=== PATIENT | male | born 1970 ===

== ENCOUNTER 2017-01-16 06:56 | Day surgery (SDC) | payer MEDICARE, MEDICAID ==
[2017-01-13 09:58] VITALS: BMI 35.6
[2017-01-16] MEDS ORDERED: Propofol 10 mg/ml Inj (20 ML) ONE ×2 (08:00→08:29)
[2017-01-16] MEDS ORDERED: Lidocaine 2% Inj (20ml) ONE (08:14)
[2017-01-16] MEDS ORDERED: Sodium Chloride 0.9% 1,000 ML IV SCH (09:00)
[2017-01-16 09:54] VITALS: O2SAT 99
[2017-01-16 09:55] VITALS: PULSE 65
[2017-01-16 10:21] VITALS: BP 124/71; RESP 18; TEMP 98
== END 2017-01-16 10:40 | disposition home or self-care (01) ==
LOC: ENDO 06:56
PROVIDERS: ATTEND Internal Medicine Gastroenterology
DX: D12.2 Benign neoplasm of ascending colon (principal); D12.3 Benign neoplasm of transverse colon; K64.1 Second degree hemorrhoids; K21.0 Gastro-esophageal reflux disease with esophagitis; K29.50 Unspecified chronic gastritis without bleeding; B96.81 Helicobacter pylori [H. pylori] as the cause of diseases classified elsewhere; I10 Essential (primary) hypertension; E78.5 Hyperlipidemia, unspecified
CPT/HCPCS: 43239; 45385; 88305; 88312; 88342; J2704; J7040 ×2

== ENCOUNTER 2017-01-19 21:36 | Emergency (ER) | payer MEDICARE, MEDICAID ==
[2017-01-19 21:36] VITALS: BMI 35.6
[2017-01-19 21:53] VITALS: BP 139/93; PULSE 86; RESP 17; TEMP 98.3; O2SAT 97
--- NOTE | 2017-01-19 22:18 | ED PDOC ---
Arrival/HPI - General Chief Complaint: Headache Time Seen by Provider: 01/19/17 21:42 Historian: Patient - History of Present Illness Narrative History of Present Illness (Text): 01/19/17 22:10 Omid Lucero is a 46 year old male, with a history of seizures, presents to the emergency department for evaluation of possible seizure last night while asleep. Patient reports of a persistent headache throughout the day and states he usually has headaches of similar quality after seizure episodes. Denies any head trauma or tongue biting during the seizure episode last night. Patient mother states that he had a seizure episode 2-3 weeks ago when he hit his head on the ground, but was not evaluated at that time. Patient is compliant with medications. Denies any fever, chills, dizziness, chest pain, shortness of breath, nausea, vomiting, diarrhea, urinary symptoms, or any other complaints at this time. 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 vagus nerve stimulator - Anesthesia Hx Anesthesia Reactions: No Hx Malignant Hyperthermia: No - Suicidal Assessment Feels Threatened In Home Enviroment: No Family/Social History - Physician Review Nursing Documentation Reviewed: Yes Family/Social History: No Known Family HX Smoking Status: Former Smoker Hx Alcohol Use: No Hx Substance Use: No Hx Substance Use Treatment: No Allergies/Home Meds Allergies/Adverse Reactions: Allergies kiwi Allergy (Verified 01/13/17 09:57) RASH Home Medications: Home Meds Medication Instructions Recorded Confirmed Enalapril Maleate [Vasotec] 10 mg PO DAILY 01/19/17 01/19/17 Primidone [Mysoline] 375 mg PO BID 01/19/17 01/19/17 carBAMazepine [TEGretol-XR] 400 mg PO BID 01/19/17 01/19/17 Review of Systems - Physician Review All systems were reviewed & negative as marked: Yes - Review of Systems Constitutional: Normal. absent: Fatigue, Fevers Respiratory: absent: SOB, Cough, Sputum Cardiovascular: absent: Chest Pain Gastrointestinal: absent: Abdominal Pain, Diarrhea, Nausea, Vomiting Neurological: Headache, Focal Weakness, Seizure. absent: Dizziness Psychiatric: Normal Physical Exam Vital Signs Reviewed: Yes Vital Signs Temp Pulse Resp BP Pulse Ox 01/19/17 21:52 98.3 F 86 17 139/93 H 97 Temperature: Afebrile Blood Pressure: Normal Pulse: Regular Respiratory Rate: Normal Appearance: Positive for: Well-Appearing, Non-Toxic, Comfortable Pain Distress: None Mental Status: Positive for: Alert and Oriented X 3 - Systems Exam Head: Present: Atraumatic, Normocephalic Pupils: Present: PERRL Extroacular Muscles: Present: EOMI Neck: Present: Normal Range of Motion Respiratory/Chest: Present: Clear to Auscultation, Good Air Exchange. No: Respiratory Distress, Accessory Muscle Use Cardiovascular: Present: Regular Rate and Rhythm, Normal S1, S2. No: Murmurs Abdomen: Present: Normal Bowel Sounds. No: Tenderness, Distention, Peritoneal Signs Upper Extremity: Present: Normal Inspection. No: Cyanosis, Edema Lower Extremity: Present: Normal Inspection. No: Edema Neurological: Present: GCS=15, CN II-XII Intact, Speech Normal, Motor Func Grossly Intact, Normal Sensory Function Psychiatric: Present: Alert, Oriented x 3, Normal Insight, Normal Concentration Medical Decision Making ED Course and Treatment: 01/19/17 22:24 Impression: A 46 year old male who presents to the emergency department for evaluation of possible seizure last night. Patient has been complaining of headache throughout the day. Plan: -- CT Head -- EKG -- Labs -- Alcohol level -- Carbamazepine -- Drug Screen -- Urinalysis -- Reassess and disposition Progress Notes: 01/20/17 01:30 EKG reviewed by me: NSR @ 87 bpm. Left anterior fascicular block. CT head results reviewed: FINDINGS: Brain: Ventricles are normal in size. There is no midline shift. There is mild prominence of sulci and gyri, unchanged. There is remote right temporal craniotomy. There is right temporal encephalomalacia, unchanged. There are no intra-axial or extra-axial mass lesions or areas of hemorrhage. Adamson-white differentiation is maintained. Ventricles: See above Bones: There is remote right temporal craniotomy defect Soft tissues: unremarkable Sinuses: There is sphenoid and ethmoid sinusitis Ears and mastoids: Middle ears and mastoids are unremarkable Orbits: Orbital contents are unremarkable. 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 I have discussed the results and plan with the patient, who expresses understanding. Patient in agreement with plan to be discharged home. Patient is stable for discharge. Patient was instructed to follow up with physician or return if symptoms worsen or new concerning symptoms arise. 01/21/17 22:46 Re-evaluation Time: 01:08 Reassessment Condition: Re-examined, Improved - Lab Interpretations Lab Results: 01/19/17 22:10 01/19/17 22:10 Lab Results 01/19/17 22:10: Alcohol, Quantitative < 10 01/19/17 22:10: Carbamazepine 12 H* 01/19/17 22:10: Urine Opiates Screen Negative, Urine Methadone Screen Negative, Ur Barbiturates Screen Positive H, Ur Phencyclidine Scrn Negative, Ur Amphetamines Screen Negative, U Benzodiazepines Scrn Negative, U Oth Cocaine Metabols Negative, U Cannabinoids Screen Negative 01/19/17 22:10: Sodium 137, Potassium 3.4 L, Chloride 101, Carbon Dioxide 26, Anion Gap 13, BUN 10, Creatinine 0.8, Est GFR ( Amer) > 60, Est GFR (Non- Af Amer) > 60, Random Glucose 97, Calcium 8.7, Total Bilirubin 0.3, AST 20, ALT 26, Alkaline Phosphatase 74, Total Protein 7.0, Albumin 4.2, Globulin 2.8, Albumin/Globulin Ratio 1.5 01/19/17 22:10: Urine Color Light yellow, Urine Appearance Clear, Urine pH 6.5, Ur Specific [place] 1.010, Urine Protein Negative, Urine Glucose (UA) Negative, Urine Ketones Negative, Urine Blood Trace-intact H, Urine Nitrate Negative, Urine Bilirubin Negative, Urine Urobilinogen 0.2, Ur Leukocyte Esterase Negative , Urine RBC 0 - 2, Urine WBC Negative, Ur Epithelial Cells 0 - 2, Urine Bacteria Small 01/19/17 22:10: WBC 8.6 D, RBC 4.77, Hgb 15.0, Hct 41.5 L, MCV 87.0, MCH 31.4, MCHC 36.1, RDW 13.1, Plt Count 168, MPV 10.2, Gran % 61.5, Lymph % (Auto) 23.3, [place] % (Auto) 11.9 H, Eos % (Auto) 3.1, Baso % (Auto) 0.2, Gran # 5.31, Lymph # 2.0, [place] # 1.0 H, Eos # 0.3, Baso # 0.02 I have reviewed the lab results: Yes - RAD Interpretation Radiology Orders: 01/19/17 22:03 HEAD W/O CONTRAST [CT] Stat Precision Devices Inspector/Tester: Radiologist - EKG Interpretation Interpreted by ED Physician: Yes Type: 12 lead EKG - Medication Orders Current Medication Orders: Discontinued Medications Home Med (*Refrigerator Open) Confirm Administered Dose 1 unit XX .STK-MED ONE Stop: 01/20/17 07:20 Ketorolac Tromethamine (Toradol) 30 mg IVP ONCE ONE Stop: 01/20/17 00:34 Last Admin: 01/20/17 00:38 Dose: 30 mg Ketorolac Tromethamine (Toradol) Confirm Administered Dose 30 mg .ROUTE .STK- MED ONE Stop: 01/20/17 00:37 Last Admin: 01/20/17 00:38 Dose: - Scribe Statement The provider has reviewed the documentation as recorded by the Issac Mccoy Provider Attestation: Provider Scribe Attestation: All medical record entries made by the Lisaibe were at my direction and personally dictated by me. I have reviewed the chart and agree that the record accurately reflects my personal performance of the history, physical exam, medical decision making, and the department course for this patient. I have also personally directed, reviewed, and agree with the discharge instructions and disposition. Disposition/Present on Arrival - Present on Arrival Any Indicators Present on Arrival: No History of DVT/PE: No History of Uncontrolled Diabetes: No Urinary Catheter: No History of Decub. Ulcer: No History Surgical Site Infection Following: None - Disposition Have Diagnosis and Disposition been Completed?: Yes Diagnosis: Seizure, Headache Disposition: HOME/ ROUTINE Disposition Time: 01:08 Condition: GOOD Discharge Instructions (ExitCare): Recurrent Seizures in Adults (ED) Additional Instructions: hold one dose of medication and follow up with pmd Referrals: Dianna Guerrero MD [Primary Care Provider] - Follow up with primary
[2017-01-19 22:22] LABS: ADD MANUAL DIFF? NO
[2017-01-19 22:26] LABS: BASO # 0.02 K/mm3 (0.0-2.0); BASO % 0.2 % (0.0-3.0); EOS # 0.3 (0.0-0.7); EOS % 3.1 % (1.5-5.0); GRAN # 5.31 (1.4-6.5); GRAN % 61.5 % (50.0-68.0); HEMATOCRIT 41.5 % (42.0-52.0); LYMPH % 23.3 % (22.0-35.0); MEAN CORPUSCULAR HEMOGLOBIN 31.4 pg (25.0-35.0); MEAN CORPUSCULAR HGB CONC 36.1 g/dl (31.0-37.0); MEAN PLATELET VOLUME 10.2 fl (7.0-11.0); MONO % 11.9 % (1.0-6.0); PLATELET COUNT 168 10^3/uL (120.0-450.0); RED CELL DISTRIBUTION WIDTH 13.1 % (11.5-14.5); WHITE BLOOD COUNT 8.6 10^3/ul (4.5-11.0)
[2017-01-19 22:35] LABS: PH,URINE 6.5 (4.7-8.0); URINE BILIRUBIN NEGATIVE (NEGATIVE); URINE BLOOD TRACE-INTACT (NEGATIVE); URINE GLUCOSE (UA) NEGATIVE (NEGATIVE); URINE KETONE NEGATIVE (NEGATIVE); URINE LEUKOCYTE ESTERASE NEGATIVE Leu/uL (NEGATIVE); URINE PROTEIN NEGATIVE mg/dL (<30 mg/dL); URINE UROBILINOGEN 0.2 E.U./dL (<1 E.U./dL)
[2017-01-19 22:40] LABS: URINE APPEARANCE CLEAR (CLEAR); URINE COLOR LIGHT YELLOW (YELLOW)
[2017-01-19 22:41] LABS: ALB/GLOB RATIO 1.5 (1.1-1.8); ALKALINE PHOSPHATASE 74 U/L (38-133); ALT/SGPT 26 U/L (7-56); AST/SGOT 20 U/L (15-59); BILIRUBIN,TOTAL 0.3 mg/dL (0.2-1.3); BLOOD UREA NITROGEN 10 mg/dL (7-21); CALCIUM 8.7 mg/dL (8.4-10.5); CARBON DIOXIDE 26 mmol/L (21-33); CHLORIDE 101 mmol/L (98-107); GFR AFRICAN-AMERICAN > 60; GLUCOSE,RANDOM 97 mg/dL (70-110); POTASSIUM 3.4 mmol/L (3.6-5.0); SODIUM 137 mmol/L (132-148)
[2017-01-19 22:58] LABS: URINE BACTERIA SMALL (NEG); URINE EPITHELIAL CELLS 0 - 2 /hpf (0-5); URINE RBC 0 - 2 /hpf (0-2); URINE WBC NEGATIVE /hpf (0-6)
--- NOTE | 2017-01-20 00:11 | CT ---
EXAM: CT Head Without Intravenous Contrast CLINICAL HISTORY: 46 years old, male; Signs and symptoms; Dizziness; Additional info: Seizure TECHNIQUE: Axial computed tomography images of the head/brain without intravenous contrast. This CT exam was performed using one or more of the following dose reduction techniques: automated exposure control, adjustment of the mA and/or kV according to patient size, and/or use of iterative reconstruction technique. EXAM DATE/TIME: 01/19/2017 10:03 PM COMPARISON: CT - HEAD W/O CONTRAST 07/09/2016 9:29:21 PM FINDINGS: Brain: Ventricles are normal in size. There is no midline shift. There is mild prominence of sulci and gyri, unchanged. There is remote right temporal craniotomy. There is right temporal encephalomalacia, unchanged. There are no intra-axial or extra-axial mass lesions or areas of hemorrhage. Adamson-white differentiation is maintained. Ventricles: See above Bones: There is remote right temporal craniotomy defect Soft tissues: unremarkable Sinuses: There is sphenoid and ethmoid sinusitis Ears and mastoids: Middle ears and mastoids are unremarkable Orbits: Orbital contents are unremarkable. 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
--- NOTE | 2017-01-20 22:46 | CARD ---
APPROVED REPORT EKG Measurement Heart [id number] ID [id number] <Conclusion> Normal sinus rhythm Left anterior fascicular block Cannot rule out Inferior infarct (masked by fascicular block?), age undetermined Abnormal ECG
== END 2017-01-20 01:39 | disposition home or self-care (01) ==
LOC: ED 21:36
DX: R51 Headache (principal); R56.9 Unspecified convulsions
CPT/HCPCS: 70450; 80053; 80156; 81001; 85025; 93005; 96374; 99285; G0480; J1885

== ENCOUNTER 2017-04-21 11:49 | Emergency (ER) | payer MEDICARE, MEDICAID ==
[2017-04-21 11:51] VITALS: BMI 33.6
[2017-04-21 11:55] VITALS: RESP 17; TEMP 97.5
--- NOTE | 2017-04-21 12:30 | ED PDOC ---
Arrival/HPI - General Chief Complaint: Dental Pain Time Seen by Provider: 04/21/17 12:16 Historian: Patient - History of Present Illness Narrative History of Present Illness (Text): 04/21/17 12:30 A 46 year old male, whose past medical history includes seizure disorder, presents to the emergency department complaining of pain to the upper palate of his mouth for the past 5 days. Patient reports mild pain to his left upper front tooth and states while blowing his nose he noted a small trace of blood. Patient denies any difficulty swallowing, fever, chills, nausea, vomiting, abdominal pain, chest pain, shortness of breath, headache, dizziness, visual changes or any other complaints. PMD: Dr. 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 vagus nerve stimulator - Anesthesia Hx Anesthesia: Yes Hx Anesthesia Reactions: No Hx Malignant Hyperthermia: No - Suicidal Assessment Feels Threatened In Home Enviroment: No Family/Social History - Physician Review Nursing Documentation Reviewed: Yes Family/Social History: No Known Family HX Smoking Status: Former Smoker Hx Alcohol Use: No Hx Substance Use: No Hx Substance Use Treatment: No Allergies/Home Meds Allergies/Adverse Reactions: Allergies kiwi Allergy (Verified 04/21/17 11:51) RASH Home Medications: Home Meds Medication Instructions Recorded Confirmed Enalapril Maleate [Vasotec] 10 mg PO DAILY 01/19/17 04/21/17 Primidone [Mysoline] 375 mg PO BID 01/19/17 04/21/17 carBAMazepine [TEGretol-XR] 400 mg PO BID 01/19/17 04/21/17 Simvastatin [Zocor] 5 mg PO HS 04/21/17 04/21/17 Review of Systems - Physician Review All systems were reviewed & negative as marked: Yes - Review of Systems Constitutional: absent: Fevers, Night Sweats Eyes: absent: Vision Changes ENT: absent: Other (Pain to upper palate of mouth, left upper front tooth. Denies difficulty swallowing. ) Respiratory: absent: SOB Cardiovascular: absent: Chest Pain Gastrointestinal: absent: Abdominal Pain, Nausea, Vomiting Neurological: absent: Headache, Dizziness Physical Exam Vital Signs Reviewed: Yes Vital Signs Temp Pulse Resp BP Pulse Ox 04/21/17 12:41 90 17 140/82 98 04/21/17 11:54 97.5 F L 92 H 17 144/96 H 97 Temperature: Afebrile Blood Pressure: Normal Pulse: Regular Respiratory Rate: Normal Appearance: Positive for: Well-Appearing, Non-Toxic, Comfortable Pain Distress: None Mental Status: Positive for: Alert and Oriented X 3 - Systems Exam Head: Present: Atraumatic, Normocephalic Pupils: Present: PERRL Conjunctiva: Present: Normal Mouth: Present: Moist Mucous Membranes, Normal Lips, Normal Tounge, Other (ttp at the upper left canine; no swelling. Anterior upper palate does appear raw; no sores or ulcers seen or lesions seen). No: Drooling, Trismus Pharnyx: No: ERYTHEMA, EXUDATE, TONSILS ENLARGED, Peritonsilar Swelling, Uvular Deviation, Muffled/Hoarse Voice, Strider, Soft Palate/Uvular Edema, Other Nose (External): Present: Atraumatic Nose (Internal): Present: Normal Inspection Neck: Present: Normal Range of Motion Respiratory/Chest: Present: Clear to Auscultation, Good Air Exchange. No: Respiratory Distress, Accessory Muscle Use Cardiovascular: Present: Regular Rate and Rhythm, Normal S1, S2. No: Murmurs Abdomen: Present: Normal Bowel Sounds. No: Tenderness, Distention, Peritoneal Signs Back: Present: Normal Inspection Upper Extremity: Present: Normal Inspection. No: Cyanosis, Edema Lower Extremity: Present: Normal Inspection. No: Edema Neurological: Present: GCS=15, CN II-XII Intact, Speech Normal Skin: Present: Warm, Dry, Normal Color. No: Rashes Psychiatric: Present: Alert, Oriented x 3, Normal Insight, Normal Concentration Medical Decision Making ED Course and Treatment: 04/21/17 12:30 Impression: A 46 year old male with pain to upper palate of mouth and left upper canine. Progress Notes: Will start on abx for dental pain and use ibuprofen. Patient informed he needs to f/u pmd and dentist. I have discussed the results and plan with the patient , who expresses understanding. Patient in agreement with plan to be discharged home. Patient is stable for discharge. Patient was instructed to follow up with dentist or return if symptoms worsen or new concerning symptoms arise. - Scribe Statement The provider has reviewed the documentation as recorded by the Issac Foss Provider Scribe Attestation: All medical record entries made by the Scribe were at my direction and personally dictated by me. I have reviewed the chart and agree that the record accurately reflects my personal performance of the history, physical exam, medical decision making, and the department course for this patient. I have also personally directed, reviewed, and agree with the discharge instructions and disposition. Disposition/Present on Arrival - Present on Arrival Any Indicators Present on Arrival: No History of DVT/PE: No History of Uncontrolled Diabetes: No Urinary Catheter: No History of Decub. Ulcer: No History Surgical Site Infection Following: None - Disposition Have Diagnosis and Disposition been Completed?: Yes Diagnosis: Pain, dental, Oral pain Disposition: HOME/ ROUTINE Disposition Time: 12:35 Patient Plan: Discharge Condition: GOOD Additional Instructions: Take the medications as prescribed. You may gargle with cold milk if you wish. Follow up with your primary care doctor and dentist. Return to the emergency department if any new concerning symptoms. Prescriptions: Amoxicillin [Amoxil 500 mg Cap] 1 cap PO TID #21 cap Ibuprofen [Motrin Tab] 1 tab PO Q8H PRN #20 tab PRN Reason: Pain, Moderate (4-7) Forms: [employer] (Thai)
[2017-04-21 12:44] VITALS: BP 140/82; PULSE 90; O2SAT 98
== END 2017-04-21 12:41 | disposition home or self-care (01) ==
LOC: ED 11:49
DX: K08.89 Other specified disorders of teeth and supporting structures (principal)

== ENCOUNTER 2017-05-04 10:57 | Emergency (ER) | payer MEDICARE, MEDICAID ==
[2017-05-04 11:18] VITALS: BMI 33.3
[2017-05-04 11:19] VITALS: TEMP 98.9
--- NOTE | 2017-05-04 11:46 | ED PDOC ---
Arrival/HPI - General Historian: Patient - History of Present Illness Time/Duration: > month Quality: Aching Context: Home - General Chief Complaint: Back Pain Time Seen by Provider: 05/04/17 11:45 - History of Present Illness Narrative History of Present Illness (Text): 05/04/17 11:46 A 46 year old male, whose past medical history includes seizure disorder, presents to the emergency department complaining of left lower back pain x 10 months. Pain has worsen 2 weeks ago. On the contrary of triage, patient denies dysuria, or urinary symptoms. Patient noted he fell down last month, which it has worsen back pain. Patient denies sob, cp, GI/ incontinence, saddle anesthesias, urinary retention, hematuria, flank pain, fever, recent travel, or abnormal gait. 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 vagus nerve stimulator. Colonoscopy - Anesthesia Hx Anesthesia: Yes Hx Anesthesia Reactions: No Hx Malignant Hyperthermia: No - Suicidal Assessment Feels Threatened In Home Enviroment: No Family/Social History - Physician Review Nursing Documentation Reviewed: Yes Family/Social History: Other (non-contributory) Smoking Status: Former Smoker Hx Alcohol Use: No Hx Substance Use: No Hx Substance Use Treatment: No Allergies/Home Meds Allergies/Adverse Reactions: Allergies amoxicillin Allergy (Verified 05/04/17 11:18) ITCHING kiwi Allergy (Verified 04/21/17 11:51) RASH Home Medications: Home Meds Medication Instructions Recorded Confirmed Enalapril Maleate [Vasotec] 10 mg PO DAILY 01/19/17 05/04/17 Primidone [Mysoline] 375 mg PO BID 01/19/17 05/04/17 carBAMazepine [TEGretol-XR] 400 mg PO BID 01/19/17 05/04/17 Simvastatin [Zocor] 5 mg PO HS 04/21/17 05/04/17 Review of Systems - Review of Systems Constitutional: Normal. absent: Fatigue, Weight Change, Fevers Eyes: Normal ENT: Normal Respiratory: Normal Cardiovascular: Normal Gastrointestinal: Normal Genitourinary Male: Normal Musculoskeletal: Back Pain Skin: Normal Neurological: Normal Endocrine: Normal Hemo/Lymphatic: Normal Psychiatric: Normal Physical Exam Temperature: Afebrile Blood Pressure: Normal Pulse: Regular Respiratory Rate: Normal Appearance: Positive for: Well-Appearing, Non-Toxic, Comfortable Pain Distress: None Mental Status: Positive for: Alert and Oriented X 3 - Systems Exam Head: Present: Atraumatic, Normocephalic Pupils: Present: PERRL Extroacular Muscles: Present: EOMI Conjunctiva: Present: Normal Mouth: Present: Moist Mucous Membranes Neck: Present: Normal Range of Motion Respiratory/Chest: Present: Clear to Auscultation, Good Air Exchange. No: Respiratory Distress, Accessory Muscle Use Cardiovascular: Present: Regular Rate and Rhythm, Normal S1, S2. No: Murmurs Abdomen: Present: Normal Bowel Sounds. No: Tenderness, Distention, Peritoneal Signs Back: Present: Normal Inspection. No: CVA Tenderness, Midline Tenderness, Paraspinal Tenderness, Pain with Leg Raise Upper Extremity: Present: Normal Inspection, Normal ROM, NORMAL PULSES, Neurovascularly Intact, Capillary Refill < 2s. No: Cyanosis, Edema Lower Extremity: Present: Normal Inspection, NORMAL PULSES, Neurovascularly Intact, Capillary Refill < 2 s. No: Edema, CALF TENDERNESS Neurological: Present: GCS=15, CN II-XII Intact, Speech Normal Skin: Present: Warm, Dry, Normal Color. No: Rashes Psychiatric: Present: Alert, Oriented x 3, Normal Insight, Normal Concentration Vital Signs Temp Pulse Resp BP Pulse Ox 05/04/17 14:23 85 17 131/80 99 05/04/17 13:37 84 18 132/79 98 05/04/17 12:45 89 18 134/86 98 05/04/17 11:19 98.9 F 95 H 18 136/90 98 Medical Decision Making Re-evaluation Time: 13:39 Reassessment Condition: Re-examined, Improved ED Course and Treatment: 05/04/17 13:39 Re-evaluation. Patient feels better. Discussed results and plan with patient who expresses understanding. All questions answered and there is agreement with the plan to discharge home with instructions. Patient stable for discharge. Return if symptoms persist or worsen. 05/04/17 13:42 mother requested mental health clinic referral for patient. patient denies SI or HI (Hola Kumar) I was available for consultation during PA evaluation. The chart was reviewed by me, and I agree with disposition. The documented history was done by the physician ore grader. The documented physical exam was done by the physician ore grader. The documented procedures were done by the physician ore grader. (Daren Mendoza) - Lab Interpretations Lab Results: Lab Results 05/04/17 12:04: Urine Color Yellow, Urine Appearance Clear, Urine pH 6.0, Ur Specific [place] >= 1.030, Urine Protein 100 H, Urine Glucose (UA) Negative, Urine Ketones Negative, Urine Blood Negative, Urine Nitrate Negative, Urine Bilirubin Negative, Urine Urobilinogen 0.2, Ur Leukocyte Esterase Negative, Urine RBC Negative, Urine WBC 0 - 2, Ur Epithelial Cells None, Amorphous Sediment Few, Urine Bacteria Mod, Urine Other Usperm - RAD Interpretation Narrative RAD Interpretations (Text): 05/04/17 13:39 LS x-rays: No fx (Hola Kumar) Radiology Orders: 05/04/17 12:00 LS SPINE WITH OBL > 18 YRS OLD [RAD] Stat - Medication Orders Current Medication Orders: Discontinued Medications Cyclobenzaprine HCl (Flexeril) 10 mg PO STAT STA Stop: 05/04/17 12:02 Last Admin: 05/04/17 12:20 Dose: 10 mg Ketorolac Tromethamine (Toradol) 30 mg IM STAT STA Stop: 05/04/17 12:02 Last Admin: 05/04/17 12:20 Dose: 30 mg MAR Pain Assessment Document 05/04/17 12:20 SF (Rec: 05/04/17 12:20 SF [id number]) Pain Reassessment Is this a pain reassessment? Yes Sleep Is patient sleeping during reassessment? No Presence of Pain Presence of Pain Yes IM Administration Charges Document 05/04/17 12:20 SF (Rec: 05/04/17 12:20 SF [id number]) Injection Site MAR Injection Site Left Deltoid Charges for Administration # of IM Administrations 1 Disposition/Present on Arrival - Present on Arrival Any Indicators Present on Arrival: No History of DVT/PE: No History of Uncontrolled Diabetes: No Urinary Catheter: No History of Decub. Ulcer: No History Surgical Site Infection Following: None - Disposition Have Diagnosis and Disposition been Completed?: Yes Disposition Time: 13:39 Patient Plan: Discharge - Disposition Diagnosis: Back pain Disposition: HOME/ ROUTINE Condition: GOOD Discharge Instructions (ExitCare): Chronic Back Pain (ED), Back Pain (ED) Additional Instructions: Call private doctor or clinic for follow up visit in 1-2 days. Take medication as instructed. return to emergency if symptoms worsen. Prescriptions: Cyclobenzaprine [Cyclobenzaprine HCl] 10 mg PO DAILY #10 tab Naproxen 500 mg PO BID PRN #14 tab PRN Reason: Pain, Severe (8-10) Referrals: Dianna Guerrero MD [Primary Care Provider] - Follow up with primary [facility] [Outside] - Follow up with primary [facility] [Outside] - Follow up with primary Forms: [employer] (Uruguayan)
[2017-05-04 12:12] LABS: URINE BILIRUBIN NEGATIVE (NEGATIVE); URINE BLOOD NEGATIVE (NEGATIVE); URINE GLUCOSE (UA) NEGATIVE (NEGATIVE); URINE KETONE NEGATIVE (NEGATIVE); URINE LEUKOCYTE ESTERASE NEGATIVE Leu/uL (NEGATIVE); URINE PROTEIN 100 mg/dL (<30 mg/dL); URINE UROBILINOGEN 0.2 E.U./dL (<1 E.U./dL)
[2017-05-04 12:15] LABS: URINE APPEARANCE CLEAR (CLEAR); URINE COLOR YELLOW (YELLOW)
[2017-05-04 12:40] LABS: URINE RBC NEGATIVE /hpf (0-2)
[2017-05-04 12:41] LABS: URINE AMORPHOUS SEDIMENT FEW; URINE BACTERIA MOD (NEG); URINE WBC 0 - 2 /hpf (0-6)
--- NOTE | 2017-05-04 13:38 | RAD ---
PROCEDURE: Radiographs of the Lumbar Spine. HISTORY: left back pain COMPARISON: No prior. FINDINGS: BONES: No acute compression fractures retropulsed fragments. Vertebral bodies exhibit relatively stature aside minor multilevel fish-mouth endplate deformities and or chronic changes. . There is straightening of the normal lumbar lordosis. Vertebral bodies facets otherwise exhibit normal alignment. DISC SPACES: Minor multilevel degenerative spondylosis. Changes include disc space narrowing narrowing with endplate eburnation head as mentioned above a few scattered chronic Schmorl's node changes. Small marginal anterolateral osteophyte formation. Facets minimally overgrown at the L5-S1 and L4-L5 levels. OTHER FINDINGS: Moderate amount stool seen within the in cecum and ascending colon suggesting mild fecal retention/constipation. IMPRESSION: No acute fractures. Mild multilevel degenerative spondylosis as above
[2017-05-04 14:24] VITALS: BP 131/80; PULSE 85; RESP 17; O2SAT 99
== END 2017-05-04 14:27 | disposition home or self-care (01) ==
LOC: ED 10:57
DX: M54.9 Dorsalgia, unspecified (principal); I10 Essential (primary) hypertension; Z87.891 Personal history of nicotine dependence
CPT/HCPCS: 72110; 81001; 87086; 96372; 99285; J1885

== ENCOUNTER 2017-11-13 20:15 | Inpatient (IN) | payer MEDICARE, MEDICAID ==
[2017-11-13 20:32] VITALS: BMI 50.5
--- NOTE | 2017-11-13 20:59 | ED PDOC ---
Arrival/HPI - General Chief Complaint: Abdominal Pain Time Seen by Provider: 11/13/17 20:34 Historian: Patient - History of Present Illness Narrative History of Present Illness (Text): 11/13/17 20:52 47 year old persian speaking male, with past medical history of hypertension, sleep apnea on CPAP and seizure disorder on implanted electrical stimulator and multiple seizure medication, presents to the Emergency department complaining of abdominal discomfort since 10 am this morning. Patient informs chronic constipation as a side effect from his medications but states having a easy bowel movement today. The abdominal discomfort followed soon after, associated with distention in the medial aspect of the abdomen. Patient denies any fever, chills, nausea, vomiting, diarrhea, chest pain, shortness of breath or any other complaints. Time/Duration: Other (10 am this morning) Symptom Onset: Sudden Symptom Course: Unchanged Quality: Aching Activities at Onset: Light Context: Home Past Medical History - Provider Review Nursing Documentation Reviewed: Yes - Infectious Disease Hx of Infectious Diseases: None - Cardiac Hx Cardiac Disorders: Yes Hx Hypertension: Yes Hx Pacemaker: No - Pulmonary Hx Respiratory Disorders: No - Neurological Hx Neurological Disorder: Yes Hx Seizures: Yes (epilepsy) Other/Comment: FACILITATOR shunt. VNS - HEENT Hx HEENT Disorder: No - Renal Hx Renal Disorder: No - Endocrine/Metabolic Hx Endocrine Disorders: No - Hematological/Oncological Hx Blood Transfusions: No Hx Blood Transfusion Reaction: No - Integumentary Hx Dermatological Disorder: No - Musculoskeletal/Rheumatological Hx Musculoskeletal Disorders: No - Gastrointestinal Hx Gastrointestinal Disorders: No - Genitourinary/Gynecological Hx Genitourinary Disorders: No - Psychiatric Hx Emotional Abuse: No Hx Physical Abuse: No Hx Substance Use: No - Surgical History Other/Comment: Brain surgery/FACILITATOR shunt. vagus nerve stimulator. Colonoscopy - Anesthesia Hx Anesthesia: Yes Hx Anesthesia Reactions: No Hx Malignant Hyperthermia: No - Suicidal Assessment Feels Threatened In Home Enviroment: No Family/Social History - Physician Review Nursing Documentation Reviewed: Yes Family/Social History: No Known Family HX Smoking Status: Former Smoker Hx Alcohol Use: No Hx Substance Use: No Hx Substance Use Treatment: No Allergies/Home Meds Allergies/Adverse Reactions: Allergies amoxicillin Allergy (Verified 11/13/17 20:32) ITCHING kiwi Allergy (Verified 11/13/17 20:32) RASH Home Medications: Home Meds Medication Instructions Recorded Confirmed Enalapril Maleate [Vasotec] 10 mg PO DAILY 01/19/17 11/13/17 Primidone [Mysoline] 375 mg PO BID 01/19/17 11/13/17 carBAMazepine [TEGretol-XR] 400 mg PO BID 01/19/17 11/13/17 Simvastatin [Zocor] 5 mg PO HS 04/21/17 11/13/17 Review of Systems - Physician Review All systems were reviewed & negative as marked: Yes - Review of Systems Constitutional: Normal. absent: Fevers Eyes: Normal ENT: Normal Respiratory: Normal. absent: SOB Cardiovascular: Normal. absent: Chest Pain Gastrointestinal: Abdominal Pain. absent: Diarrhea, Nausea, Vomiting Genitourinary Male: Normal Musculoskeletal: Normal Skin: Normal Neurological: Normal Endocrine: Normal Hemo/Lymphatic: Normal Psychiatric: Normal Physical Exam Vital Signs Reviewed: Yes Vital Signs Temp Pulse Resp BP Pulse Ox 11/13/17 20:32 98.1 F 93 H 20 151/93 H 96 Temperature: Afebrile Blood Pressure: Hypertensive Pulse: Regular Respiratory Rate: Normal Appearance: Positive for: Well-Appearing, Non-Toxic, Uncomfortable Pain Distress: None Mental Status: Positive for: Alert and Oriented X 3 - Systems Exam Head: Present: Atraumatic, Normocephalic Pupils: Present: PERRL Extroacular Muscles: Present: EOMI Conjunctiva: Present: Normal Mouth: Present: Moist Mucous Membranes Neck: Present: Normal Range of Motion Respiratory/Chest: Present: Clear to Auscultation, Good Air Exchange. No: Respiratory Distress, Accessory Muscle Use Cardiovascular: Present: Regular Rate and Rhythm, Normal S1, S2. No: Murmurs Abdomen: No: Tenderness, Distention, Peritoneal Signs Back: Present: Normal Inspection Upper Extremity: Present: Normal Inspection. No: Cyanosis, Edema Lower Extremity: Present: Normal Inspection. No: Edema Neurological: Present: GCS=15, CN II-XII Intact, Speech Normal Skin: Present: Warm, Dry, Normal Color. No: Rashes Psychiatric: Present: Alert, Oriented x 3, Normal Insight, Normal Concentration Medical Decision Making ED Course and Treatment: 11/13/17 21:01 Impression: 47 year old male presents to the Emergency department for abdominal discomfort. Plan: -- CT of Abdomen/Pelvis -- Labs -- Urinalysis -- Reassess and disposition Progress Notes: - Scribe Statement The provider has reviewed the documentation as recorded by the Scribe Mirna Patel. All medical record entries made by the Scribe were at my direction and personally dictated by me. I have reviewed the chart and agree that the record accurately reflects my personal performance of the history, physical exam, medical decision making, and the department course for this patient. I have also personally directed, reviewed, and agree with the discharge instructions and disposition. Disposition/Present on Arrival - Present on Arrival History of DVT/PE: No History of Uncontrolled Diabetes: No Urinary Catheter: No History of Decub. Ulcer: No History Surgical Site Infection Following: None - Disposition Referrals: iDanna Guerrero MD [Primary Care Provider] - Follow up with primary Forms: [employer] (Macedonian)
[2017-11-13] MEDS ORDERED: Morphine 4 mg/ml ISec IVP STA (21:02)
[2017-11-13] MEDS ORDERED: Sodium Chloride 0.9% 1,000 ML IV STA (21:02)
[2017-11-13] MEDS ORDERED: Iohexol 240 (50 ml) ONE (21:05)
[2017-11-13 21:25] LABS: BASO # 0.02 K/mm3 (0.0-2.0); BASO % 0.2 % (0.0-3.0); EOS # 0.1 (0.0-0.7); EOS % 1.2 % (1.5-5.0); GRAN # 6.95 (1.4-6.5); GRAN % 68.7 % (50.0-68.0); HEMOGLOBIN 15.4 g/dL (14.0-18.0); LYMPH # 2.2 (1.2-3.4); LYMPH % 21.3 % (22.0-35.0); MEAN CELL VOLUME 86.5 fl (80.0-105.0); MEAN CORPUSCULAR HEMOGLOBIN 30.9 pg (25.0-35.0); MEAN CORPUSCULAR HGB CONC 35.7 g/dl (31.0-37.0); MEAN PLATELET VOLUME 10.5 fl (7.0-11.0); MONO # 0.9 (0.1-0.6); MONO % 8.6 % (1.0-6.0); PH,URINE 7.5 (4.7-8.0); RBC 4.98 10^6/uL (3.5-6.1); RED CELL DISTRIBUTION WIDTH 13.7 % (11.5-14.5); URINE BILIRUBIN NEGATIVE (NEGATIVE); URINE BLOOD NEGATIVE (NEGATIVE); URINE GLUCOSE (UA) NEGATIVE (NEGATIVE); URINE LEUKOCYTE ESTERASE NEGATIVE Leu/uL (NEGATIVE); URINE PROTEIN NEGATIVE mg/dL (<30 mg/dL); URINE UROBILINOGEN 0.2 E.U./dL (<1 E.U./dL); WHITE BLOOD COUNT 10.1 10^3/ul (4.5-11.0)
[2017-11-13 21:26] LABS: URINE APPEARANCE CLEAR (CLEAR); URINE COLOR COLORLESS (YELLOW)
[2017-11-13 21:31] LABS: INR 1.03 (0.93-1.08); PROTHROMBIN TIME 11.8 SECONDS (9.4-12.5)
[2017-11-13 21:36] LABS: ALB/GLOB RATIO 1.4 (1.1-1.8); ALBUMIN 4.3 g/dL (3.0-4.8); ALT/SGPT 30 U/L (7-56); AST/SGOT 31 U/L (17-59); BLOOD UREA NITROGEN 12 mg/dL (7-21); CALCIUM 9.2 mg/dL (8.4-10.5); GFR AFRICAN-AMERICAN > 60; GFR NON-AFRICAN AMERICAN > 60; LIPASE 70 U/L (23-300)
[2017-11-13] MEDS ORDERED: Iohexol 350 MG/100 ML VIAL ONE (21:51)
--- NOTE | 2017-11-13 22:23 | ED PDOC ---
Physical Exam Vital Signs Reviewed: Yes Vital Signs Temp Pulse Resp BP Pulse Ox 11/13/17 22:52 90 16 148/88 100 11/13/17 20:32 98.1 F 93 H 20 151/93 H 96 Temperature: Afebrile Blood Pressure: Hypertensive Pulse: Tachycardic Respiratory Rate: Normal Appearance: Positive for: Well-Appearing, Non-Toxic, Comfortable Pain Distress: None Mental Status: Positive for: Alert and Oriented X 3 Medical Decision Making ED Course and Treatment: 11/13/17 22:23: Case endorsed to me by Dr. Abernathy. Pending labs, CT results, reassessment and discharge. CT Abdomen and Pelvis With Intravenous Contrast EXAM DATE/TIME: 11/13/2017 9:00 PM Dictated and Authenticated by: Leon Flores MD 11/13/2017 11:22 PM Eastern Time ([place] & [place]) IMPRESSION: 1. The distal appendix is mildly distended with minimal periappendiceal stranding. Early appendicitis is considered. Clinical correlation is recommended. 2. Small bowel loops are mildly distended with contrast within the left side of the abdomen, without complete obstruction of contrast flow more distally within small bowel. Partial obstruction is difficult to exclude. 3. Several small hypodense hepatic lesions are identified. Within the right hepatic lobe, the largest lesion measures 1.1 cm in diameter, likely representing a cyst or hemangioma. The remaining lesions are too small to characterize further. 4. The prostate is enlarged. There is mild nonspecific wall thickening of the bladder. 5. Incidental/non-acute findings are described above. 11/13/17 23:50: Case discussed with Dr. Smith. Requests Dr. Leon for surgery consult. 11/13/17 23:50: residential advisor paged. 11/13/17 23:52: Case discussed with surgical consultant. 11/13/17 23:54: Dr. Leon paged. 11/14/17 00:01: Case discussed with Dr. Leon. - Lab Interpretations Lab Results: 11/13/17 21:12 11/13/17 21:12 Lab Results 11/13/17 21:12: Sodium 138, Potassium 3.5 L, Chloride 100, Carbon Dioxide 29, Anion Gap 13, BUN 12, Creatinine 0.9, Est GFR ( Amer) > 60, Est GFR (Non- Af Amer) > 60, Random Glucose 108, Calcium 9.2, Total Bilirubin 0.3, AST 31, ALT 30, Alkaline Phosphatase 68, Total Protein 7.4, Albumin 4.3, Globulin 3.1, Albumin/Globulin Ratio 1.4, Lipase 70 11/13/17 21:12: Urine Color Colorless, Urine Appearance Clear, Urine pH 7.5, Ur Specific [place] 1.010, Urine Protein Negative, Urine Glucose (UA) Negative, Urine Ketones Negative, Urine Blood Negative, Urine Nitrate Negative, Urine Bilirubin Negative, Urine Urobilinogen 0.2, Ur Leukocyte Esterase Negative 11/13/17 21:12: PT 11.8, INR 1.03 11/13/17 21:12: WBC 10.1, RBC 4.98, Hgb 15.4, Hct 43.1, MCV 86.5, MCH 30.9, MCHC 35.7, RDW 13.7, Plt Count 169, MPV 10.5, Gran % 68.7 H, Lymph % (Auto) 21.3 L, [place] % (Auto) 8.6 H, Eos % (Auto) 1.2 L, Baso % (Auto) 0.2, Gran # 6.95 H, Lymph # (Auto) 2.2, [place] # (Auto) 0.9 H, Eos # (Auto) 0.1, Baso # (Auto) 0.02 - RAD Interpretation Radiology Orders: 11/13/17 21:00 ABD PELVIS PO & IV CONTRAST [CT] Stat - Medication Orders Current Medication Orders: Ciprofloxacin (Cipro 400mg/200ml Dsw) 400 mg in 200 mls @ 133.3 mls/hr IVPB STAT STA PRN Reason: Protocol Stop: 11/14/17 00:56 Metronidazole (Flagyl) 500 mg in 100 mls @ 100 mls/hr IVPB STAT STA PRN Reason: Protocol Stop: 11/14/17 00:25 Primidone (Mysoline) 375 mg PO TID ZOE Stop: 11/13/17 23:59 Primidone (Mysoline) 375 mg PO STAT STA Stop: 11/14/17 00:00 Discontinued Medications Carbamazepine (Tegretol) 400 mg PO STAT STA PRN Reason: Protocol Stop: 11/13/17 23:46 Sodium Chloride (Sodium Chloride 0.9%) 1,000 mls @ 999 mls/hr IV .Q1H1M STA Stop: 11/13/17 22:02 Last Admin: 11/13/17 21:18 Dose: 999 mls/hr eMAR Start Stop Document 11/13/17 21:18 MS (Rec: 11/13/17 21:22 MS [id number]) Intravenous Solution Start Date 11/13/17 Start Time 21:21 End Date 11/13/17 End time 22:21 Total Infusion Time 60 Morphine Sulfate (Morphine) 4 mg IVP STAT STA Stop: 11/13/17 21:03 Last Admin: 11/13/17 21:22 Dose: 4 mg MAR Pain Assessment Document 11/13/17 21:22 MS (Rec: 11/13/17 21:22 MS [id number]) Pain Reassessment Is this a pain reassessment? No Sleep Is patient sleeping during reassessment? No Presence of Pain Presence of Pain Yes Pain Scale Used Pain Scale Used Numeric Location Left, Right or Bilateral Right Upper or Lower Lower Pain Location Body Site Abdomen Description Description Intermittent Intensity of Pain at present 8 Pain Behavior Grasping Site IVP Administration Document 11/13/17 21:22 MS (Rec: 11/13/17 21:22 MS [id number]) Charges for Administration # of IVP Administrations 1 Ondansetron HCl (Zofran Inj) 4 mg IVP STAT STA Stop: 11/13/17 21:03 Last Admin: 11/13/17 21:22 Dose: 4 mg IVP Administration Document 11/13/17 21:22 MS (Rec: 11/13/17 21:22 MS [id number]) Charges for Administration # of IVP Administrations 1 - Scribe Statement The provider has reviewed the documentation as recorded by the Lisaibescobar Wyatt Provider Scribe Attestation: All medical record entries made by the Scribe were at my direction and personally dictated by me. I have reviewed the chart and agree that the record accurately reflects my personal performance of the history, physical exam, medical decision making, and the department course for this patient. I have also personally directed, reviewed, and agree with the discharge instructions and disposition. Disposition/Present on Arrival - Present on Arrival Any Indicators Present on Arrival: No History of DVT/PE: No History of Uncontrolled Diabetes: No Urinary Catheter: No History of Decub. Ulcer: No History Surgical Site Infection Following: None - Disposition Have Diagnosis and Disposition been Completed?: Yes Diagnosis: Appendicitis Disposition: HOSPITALIZED Disposition Time: 02:00 Condition: STABLE
--- NOTE | 2017-11-13 23:23 | CT ---
EXAM: CT Abdomen and Pelvis With Intravenous Contrast EXAM DATE/TIME: 11/13/2017 9:00 PM CLINICAL HISTORY: The patient age is 47 years old and is male; Pain; Abdominal pain; Periumbilical; Additional info: Periumbilican pain and tenderness since 10a Facility exam id and description: Ct abdpelc abd pelvis po iv contrast TECHNIQUE: Axial computed tomography images of the abdomen and pelvis with intravenous contrast. All CT scans at this facility use one or more dose reduction techniques, viz.: automated exposure control; ma/kV adjustment per patient size (including targeted exams where dose is matched to indication; i.e. head); or iterative reconstruction technique. Coronal and sagittal reformatted images were created and reviewed. CONTRAST: 100 mL of OMNI 350 administered intravenously. COMPARISON: No relevant prior studies available. FINDINGS: Lung bases: Mild bibasilar atelectatic changes are visualized. ABDOMEN: Liver: Several small hypodense hepatic lesions are identified. Within the right hepatic lobe, the largest lesion measures 1.1 cm in diameter, likely representing a cyst or hemangioma. The remaining lesions are too small to characterize further. Gallbladder and bile ducts: No calcified stones. No ductal dilation. Pancreas: Normal contour, without acute peripancreatic stranding. Spleen: No splenomegaly. Adrenals: No mass. Kidneys and ureters: There is bilateral renal pelviectasis. No renal mass. Stomach and bowel: Small bowel loops are mildly distended with contrast within the left side of the abdomen, without complete obstruction of contrast flow more distally within small bowel. Partial obstruction is difficult to exclude. Appendix: The distal appendix is mildly distended with minimal periappendiceal stranding. The appendix measures 0.9 cm in diameter. Early appendicitis is considered. PELVIS: Bladder: See below. Reproductive: The prostate is enlarged. There is mild nonspecific wall thickening of the bladder. ABDOMEN and PELVIS: Intraperitoneal space: No free air. Bones/joints: Hypertrophic degenerative changes are noted within the spine. Soft tissues: There is minimal herniation of fat within the umbilicus. Vasculature: No abdominal aortic aneurysm. Lymph nodes: No enlarged lymph nodes. IMPRESSION: 1. The distal appendix is mildly distended with minimal periappendiceal stranding. Early appendicitis is considered. Clinical correlation is recommended. 2. Small bowel loops are mildly distended with contrast within the left side of the abdomen, without complete obstruction of contrast flow more distally within small bowel. Partial obstruction is difficult to exclude. 3. Several small hypodense hepatic lesions are identified. Within the right hepatic lobe, the largest lesion measures 1.1 cm in diameter, likely representing a cyst or hemangioma. The remaining lesions are too small to characterize further. 4. The prostate is enlarged. There is mild nonspecific wall thickening of the bladder. 5. Incidental/non-acute findings are described above.
[2017-11-13] MEDS ORDERED: metroNIDAZOLE IV 500 mg/100 ml 500 MG/100 ML BAG IVPB STA (23:26)
[2017-11-13] MEDS ORDERED: Ciprofloxacin 400mg/200ml D5W 400 MG/200 ML BAG IVPB STA (23:26)
[2017-11-14] MEDS ORDERED: Morphine 2 mg/2 mL syringe IVP PRN (00:43)
[2017-11-14] MEDS ORDERED: Sodium Chloride 0.9% 1,000 ML IV SCH ×2 (00:45→06:06)
--- NOTE | 2017-11-14 01:08 | CP.PCM.CON ---
<Mike Salcido - Last Filed: 11/14/17 00:49> History of Present Illness - History of Present Illness History of Present Illness: General Surgery- Dr. Leon 47M presents to [facility] w/ sharp periumbilical abdominal pain that migrated to RLQ of abdomen at 11am yesterday (08/15/17). Denies associated nausea/vomiting, changes in bowel or urinary habits. Denies recent sick contacts or foreign travel. Denies current: Fevers, chills, chest pain, shortness of breath, nausea, vomiting, diarrhea, blood in stool/urine PMD: Dr. Lassiter PMH: H.Pylori, 2 colonic polyps PSH: EGD, colonoscopy (2017) SocialHx: denies tobacco, etoh, recreational drug use Review of Systems - Review of Systems All systems: reviewed and no additional remarkable complaints except - Constitutional Constitutional: As Per HPI Past Patient History - Infectious Disease Hx of Infectious Diseases: None - Past Social History Smoking Status: Former Smoker - CARDIAC Hx Cardiac Disorders: Yes Hx Hypertension: Yes Hx Pacemaker: No - PULMONARY Hx Respiratory Disorders: No - NEUROLOGICAL Hx Neurological Disorder: Yes Hx Seizures: Yes (epilepsy) Other/Comment: LACQUER SIZER shunt. VNS - HEENT Hx HEENT Problems: No - RENAL Hx Chronic Kidney Disease: No - ENDOCRINE/METABOLIC Hx Endocrine Disorders: No - HEMATOLOGICAL/ONCOLOGICAL Hx Blood Transfusions: No Hx Blood Transfusion Reaction: No - INTEGUMENTARY Hx Dermatological Problems: No - MUSCULOSKELETAL/RHEUMATOLOGICAL Hx Musculoskeletal Disorders: No - GASTROINTESTINAL Hx Gastrointestinal Disorders: No - GENITOURINARY/GYNECOLOGICAL Hx Genitourinary Disorders: No - PSYCHIATRIC Hx Emotional Abuse: No Hx Physical Abuse: No Hx Substance Use: No - SURGICAL HISTORY Other/Comment: Brain surgery/LACQUER SIZER shunt. vagus nerve stimulator. Colonoscopy - ANESTHESIA Hx Anesthesia: Yes Hx Anesthesia Reactions: No Hx Malignant Hyperthermia: No Meds Allergies/Adverse Reactions: Allergies Allergy/AdvReac Type Severity Reaction Status Date / Time amoxicillin Allergy ITCHING Verified 11/13/17 20:32 kiwi Allergy RASH Verified 11/13/17 20:32 - Medications Medications: Current Medications Ciprofloxacin (Cipro 400mg/200ml Dsw) 400 mg in 200 mls @ 133.3 mls/hr IVPB STAT STA PRN Reason: Protocol Stop: 11/14/17 00:56 Physical Exam - Constitutional Appears: Non-toxic, No Acute Distress - Head Exam Head Exam: ATRAUMATIC - Eye Exam Eye Exam: EOMI. absent: Scleral icterus - ENT Exam ENT Exam: Mucous Membranes Moist - Respiratory Exam Respiratory Exam: NORMAL BREATHING PATTERN. absent: Accessory Muscle Use, Respiratory Distress - Cardiovascular Exam Cardiovascular Exam: +S1, +S2. absent: Bradycardia, Tachycardia - GI/Abdominal Exam GI & Abdominal Exam: Guarding (voluntary gurading), Soft, Tenderness. absent: Firm, Hernia, Mass, Rigid Additional comments: TTP RLQ + stafford, + Psoas - Extremities Exam Extremities exam: Negative for: calf tenderness - Back Exam Back exam: absent: CVA tenderness (L), CVA tenderness (R) - Neurological Exam Neurological exam: Alert, Oriented x3 - Psychiatric Exam Psychiatric exam: Normal Affect - Skin Skin Exam: Intact, Warm Results - Vital Signs Recent Vital Signs: Last Vital Signs Temp 98.1 F 11/13/17 20:32 Pulse 82 11/14/17 00:44 Resp 16 11/13/17 22:52 BP 123/74 11/14/17 00:44 Pulse Ox 98 11/14/17 00:44 - Labs Result Diagrams: 11/13/17 21:12 11/13/17 21:12 Assessment & Plan - Assessment and Plan (Free Text) Assessment: 47M w/ abdominal Pain r/o appendicitis Plan: - NPO - IVF/Abx - serial abd exams - AM labs - Pain control PRN - discussed w/ Dr. Leon surgical attending PGY1 <Hilario Leon - Last Filed: 11/14/17 08:22> Meds - Medications Medications: Current Medications Acetaminophen (Tylenol 325mg Tab) 650 mg PO Q4 PRN PRN Reason: Fever >100.4 F Atorvastatin Calcium (Lipitor) 10 mg PO HS ZOE Carbamazepine (Tegretol) 400 mg PO BID ZOE PRN Reason: Protocol Ciprofloxacin (Cipro 400mg/200ml Dsw) 400 mg in 200 mls @ 133.3 mls/hr IVPB Q12 ZOE PRN Reason: Protocol Stop: 11/14/17 11:31 Metronidazole (Flagyl) 500 mg in 100 mls @ 100 mls/hr IVPB Q8 ZOE PRN Reason: Protocol Last Admin: 11/14/17 05:04 Dose: 100 mls/hr Sodium Chloride (Sodium Chloride 0.9%) 1,000 mls @ 165 mls/hr IV .Q6H4M ZOE Lisinopril (Zestril) 10 mg PO DAILY ZOE Morphine Sulfate (Morphine) 2 mg IVP Q4H PRN PRN Reason: Pain, moderate (4-7) Ondansetron HCl (Zofran Inj) 4 mg IVP Q6 PRN PRN Reason: Nausea/Vomiting Pantoprazole Sodium (Protonix Inj) 40 mg IVP DAILY ZOE Primidone (Mysoline) 250 mg PO DAILY ZOE Primidone (Mysoline) 375 mg PO HS ZOE Results - Vital Signs Recent Vital Signs: Last Vital Signs Temp 97.3 F L 11/14/17 07:54 Pulse 74 11/14/17 07:54 Resp 20 11/14/17 07:54 BP 114/80 11/14/17 07:54 Pulse Ox 94 L 11/14/17 07:54 - Labs Result Diagrams: 11/13/17 21:12 11/13/17 21:12 Assessment & Plan - Assessment and Plan (Free Text) Assessment: DX: RLQ abd pain(Appy vs constipation) Obesity(100# gain 1 year) Seisure disorder HTCAD GERD(Vagal Pacemaker) Chr spinal disease Eliecer Cons Rx for now and follow closely for possible OR This consult done under my direct supervision Tamika Leon MD FACS
[2017-11-14] MEDS: metroNIDAZOLE IV 500 mg/100 ml 500 MG/100 ML BAG IVPB SCH ×3 (05:04→21:12)
--- NOTE | 2017-11-14 09:26 | CP.PCM.PCO ---
Physician Communication Note - Physician Communication Note Physician Communication Note: WBC Pending/Pain almost gone/Further eval required before Surgery
[2017-11-14 09:40] LABS: BASO # 0.01 K/mm3 (0.0-2.0); BASO % 0.2 % (0.0-3.0); EOS # 0.2 (0.0-0.7); EOS % 2.3 % (1.5-5.0); GRAN # 3.73 (1.4-6.5); GRAN % 57.8 % (50.0-68.0); HEMOGLOBIN 15.4 g/dL (14.0-18.0); LYMPH # 1.9 (1.2-3.4); LYMPH % 29.8 % (22.0-35.0); MEAN CORPUSCULAR HEMOGLOBIN 30.7 pg (25.0-35.0); MEAN CORPUSCULAR HGB CONC 35.7 g/dl (31.0-37.0); MEAN PLATELET VOLUME 10.4 fl (7.0-11.0); MONO # 0.6 (0.1-0.6); MONO % 9.9 % (1.0-6.0); RBC 5.01 10^6/uL (3.5-6.1); RED CELL DISTRIBUTION WIDTH 13.7 % (11.5-14.5); WHITE BLOOD COUNT 6.5 10^3/ul (4.5-11.0)
[2017-11-14] MEDS ORDERED: Ciprofloxacin 400mg/200ml D5W 400 MG/200 ML BAG IVPB SCH (10:00)
[2017-11-14] MEDS: POLYETHYLENE GLYCOL 3350 17 GM/Dose PACKET PO SCH ×2 (13:59→17:51)
[2017-11-14] MEDS: Aztreonam 1 Gm in NS 100mL 100 ML IVPB SCH ×2 (17:50→22:34)
[2017-11-14] MEDS: Sodium Chloride 0.9% 1,000 ML IV SCH (22:38)
--- NOTE | 2017-11-15 04:57 | HP ---
HISTORY OF PRESENT ILLNESS: The patient is a 47-year-old male who came to the emergency room because of increasing abdominal discomfort. The patient states that he has been having diffuse abdominal pain for last 2 to 3 days, but last night, he was having more pain in the right lower quadrant area. He had similar episode few months ago. He was admitted in [facility] for five days, was given IV antibiotics and sent home. Currently, the patient's pain seems to be improving. No more nausea or vomiting. No fever or chills. Complaining of some shortness of breath. No hemoptysis. No hematemesis. PAST MEDICAL HISTORY: Significant for seizure disorder since childhood, hyperlipidemia, peptic ulcer disease, history of H. pylori and gastritis, had endoscopy and colonoscopy by Dr. Arnold in 01/2017. He was diagnosed with H. pylori and gastritis. He was treated and seems to be doing well from that point of view. FAMILY HISTORY: Not relevant. SOCIAL HISTORY: The patient is disabled and has not been working because of his seizure disorder. PAST SURGICAL HISTORY: Significant for endoscopy and colonoscopy. He also had pacemaker placed; he is not sure why. He was told that this is to control his seizures, and he also has some he is not sure he had surgical intervention done for also. The patient also states that he had partial lobectomy, but he does not exactly know the nature of the surgery that he had. History of sleep apnea. MEDICATION AT HOME: He is on Tegretol 400 mg twice a day, simvastatin 5 mg bedtime, primidone 375 b.i.d., enalapril 10 mg daily. PHYSICAL EXAMINATION: GENERAL: The patient is awake, alert, oriented, and communicative. VITAL SIGNS: He is afebrile. Pulse 79, respirations 20, blood pressure 128/84. LUNGS: Bilateral good airflow. No rhonchi or crackles. HEART: S1, S2 audible. ABDOMEN: Soft. Slight epigastric and periumbilical hvtjpb-thb-iongx-side palpable discomfort. No rebound. No guarding. NEUROLOGIC: The patient is awake, alert, oriented, and communicative. He is able to move all extremities. No focal or motor deficit. EXTREMITIES: Shows no edema. No tenderness. No cyanosis. LABORATORY EXAM: WBC is 6.5, hemoglobin is 15.4, hematocrit 43.1, platelet of 161. PT 11.8, INR 1.03. Chemistry; sodium 138, potassium 3.5, chloride 100, CO2 29, BUN 12, creatinine 0.9, blood sugar of 108. Urinalysis is unremarkable. CT scan of the abdomen and pelvis was done without contrast that shows constipation. Distal appendix is mildly distended with minimal periappendicular stranding, questionable early appendicitis and questionable small bowel loop dilatation, and enlarged prostate. ASSESSMENT AND PLAN: 1. Questionable acute appendicitis. Physical exam is not remarkable for acute appendicitis. 2. Constipation. 3. History of seizure disorder. 4. Morbid obesity. 5. Hyperlipidemia. 6. Seizure disorder. PLAN: Currently the patient is n.p.o. We will give IV fluid and IV antibiotics. We will resume his medications. Currently the patient is on Azactam. He is getting metronidazole. I will resume his usual medications. He is on primidone 250 in the morning and 375 at bedtime. We will continue on Protonix. He will be watched closely. If his symptoms get worse, he might need surgical intervention. Carin Smith MD
[2017-11-15] MEDS: metroNIDAZOLE IV 500 mg/100 ml 500 MG/100 ML BAG IVPB SCH ×3 (05:48→22:12)
[2017-11-15 07:08] LABS: BASO # 0.01 K/mm3 (0.0-2.0); BASO % 0.2 % (0.0-3.0); EOS # 0.2 (0.0-0.7); EOS % 4.5 % (1.5-5.0); GRAN # 2.54 (1.4-6.5); GRAN % 50.2 % (50.0-68.0); HEMOGLOBIN 14.8 g/dL (14.0-18.0); LYMPH # 1.7 (1.2-3.4); LYMPH % 32.9 % (22.0-35.0); MEAN CORPUSCULAR HEMOGLOBIN 30.6 pg (25.0-35.0); MEAN CORPUSCULAR HGB CONC 35.6 g/dl (31.0-37.0); MEAN PLATELET VOLUME 10.7 fl (7.0-11.0); MONO # 0.6 (0.1-0.6); MONO % 12.2 % (1.0-6.0); RBC 4.84 10^6/uL (3.5-6.1); RED CELL DISTRIBUTION WIDTH 13.8 % (11.5-14.5); WHITE BLOOD COUNT 5.1 10^3/ul (4.5-11.0)
[2017-11-15 07:38] LABS: ALB/GLOB RATIO 1.4 (1.1-1.8); ALBUMIN 3.7 g/dL (3.0-4.8); ALT/SGPT 37 U/L (7-56); AST/SGOT 21 U/L (17-59); BLOOD UREA NITROGEN 9 mg/dL (7-21); CALCIUM 8.8 mg/dL (8.4-10.5); GFR AFRICAN-AMERICAN > 60; GFR NON-AFRICAN AMERICAN > 60
--- NOTE | 2017-11-15 07:48 | CP.PCM.PN ---
Subjective - Date & Time of Evaluation Date of Evaluation: 11/15/17 Time of Evaluation: 07:47 - Subjective Subjective: Surgery: Dr. Leon Pain improved. Denies bowel movement. Denies n/v/f/c. Reports appetite. Objective - Vital Signs/Intake and Output Vital Signs (last 24 hours): Temp Pulse Resp BP Pulse Ox 97.8 F 71 20 115/79 97 11/15/17 06:00 11/15/17 06:00 11/15/17 06:00 11/15/17 06:00 11/15/17 06:00 Intake and Output: 11/15/17 11/15/17 06:59 18:59 Intake Total 1200 Output Total 0 Balance 1200 - Medications Medications: Current Medications Acetaminophen (Tylenol 325mg Tab) 650 mg PO Q4 PRN PRN Reason: Fever >100.4 F Last Admin: 11/14/17 20:06 Dose: 650 mg Atorvastatin Calcium (Lipitor) 10 mg PO HS [facility] Last Admin: 11/14/17 21:12 Dose: 10 mg Carbamazepine (Tegretol) 400 mg PO BID ZOE PRN Reason: Protocol Last Admin: 11/14/17 17:51 Dose: 400 mg Docusate Sodium (Colace) 100 mg PO BID [facility] Last Admin: 11/14/17 17:51 Dose: 100 mg Metronidazole (Flagyl) 500 mg in 100 mls @ 100 mls/hr IVPB Q8 ZOE PRN Reason: Protocol Last Admin: 11/15/17 05:48 Dose: 100 mls/hr Sodium Chloride (Sodium Chloride 0.9%) 1,000 mls @ 100 mls/hr IV .Q10H [facility] Last Admin: 11/14/17 22:38 Dose: 100 mls/hr Lisinopril (Zestril) 10 mg PO DAILY [facility] Last Admin: 11/14/17 09:36 Dose: 10 mg Morphine Sulfate (Morphine) 2 mg IVP Q4H PRN PRN Reason: Pain, moderate (4-7) Ondansetron HCl (Zofran Inj) 4 mg IVP Q6 PRN PRN Reason: Nausea/Vomiting Pantoprazole Sodium (Protonix Inj) 40 mg IVP DAILY [facility] Last Admin: 11/14/17 09:35 Dose: 40 mg Polyethylene Glycol (Miralax) 17 gm PO BID [facility] Last Admin: 11/14/17 17:51 Dose: 17 gm Primidone (Mysoline) 250 mg PO DAILY [facility] Last Admin: 11/14/17 09:48 Dose: 250 mg Primidone (Mysoline) 375 mg PO HS [facility] Last Admin: 11/14/17 21:10 Dose: 375 mg - Labs Labs: 11/15/17 06:30 11/15/17 06:30 PT 11.8 SECONDS (9.4-12.5) 11/13/17 21:12 INR 1.03 (0.93-1.08) 11/13/17 21:12 - Constitutional Appears: Non-toxic, No Acute Distress - Head Exam Head Exam: ATRAUMATIC, NORMOCEPHALIC - Eye Exam Eye Exam: EOMI, Normal appearance - ENT Exam ENT Exam: Mucous Membranes Moist - Respiratory Exam Respiratory Exam: NORMAL BREATHING PATTERN. absent: Respiratory Distress - Cardiovascular Exam Cardiovascular Exam: REGULAR RHYTHM. absent: Tachycardia - GI/Abdominal Exam GI & Abdominal Exam: Soft, Tenderness (mild RLQ tendernes with deep palpation). absent: Guarding, Rebound Assessment and Plan - Assessment and Plan (Free Text) Assessment: 47 y/o male with RLQ pain 2/2 early appy vs constipation Plan: -pain improving -cont abx -dulcolax for constipation -ok for initiation of diet, ADAT -further recs per Dr. Leon [facility] PGY3
[2017-11-15] MEDS ORDERED: Potassium Chloride 20 mEq ER Tab PO ONE (07:56)
[2017-11-15] MEDS: POLYETHYLENE GLYCOL 3350 17 GM/Dose PACKET PO SCH ×2 (09:05→17:41)
[2017-11-15] MEDS: Sodium Chloride 0.9% 1,000 ML IV SCH (14:18)
--- NOTE | 2017-11-15 21:31 | PN ---
DATE: 11/15/2017 HISTORY OF PRESENT ILLNESS: Mr. Lucero is a 47-year-old male admitted with abdominal pain. There was suspicion for acute appendicitis. He is being managed conservatively. Currently on IV antibiotics and IV fluids. Abdominal pain has decreased, did not any bowel movements yet. Complaining of slight discomfort in the abdomen. PAST MEDICAL HISTORY: Seizure disorder, hyperlipidemia, peptic ulcer disease, gastritis, H. pylori. PAST SURGICAL HISTORY: Endoscopy, colonoscopy. FAMILY HISTORY: Noncontributory. SOCIAL HISTORY: Disabled due to seizure disorders. PERSONAL HISTORY: Nonsmoker. No history of alcohol abuse. MEDICATIONS: Tegretol 400 mg three times a day, simvastatin, enalapril. PHYSICAL EXAMINATION: GENERAL: Comfortable in chair, in no acute distress. VITAL SIGNS: Temperature 98.7, heart rate 80 per minute, respiratory rate 20 per minute, blood pressure 130/84. HEENT: Normal. NECK: No lymphadenopathy. CHEST: Air entry present and equal bilaterally. No added sounds. CARDIOVASCULAR: S1 and S2 normal. No murmur. No gallop. ABDOMEN: Soft, nontender. No hepatosplenomegaly. EXTREMITIES: No edema. SPINE: Nontender. SKIN: No petechiae. No rash. LABORATORY DATA: White count 6.5, hemoglobin 15.5, hematocrit 43, platelet 161. Sodium 138, potassium 3.5. CAT scan of the abdomen without contrast showed constipation, appendix is mildly distended with minimal periappendicular stranding. ASSESSMENT: 1. Questionable acute appendicitis. 2. Seizure disorder. 3. Morbid obesity. 4. Hyperlipidemia. 5. Leukocytosis. PLAN: He is being managed conservatively for appendicitis, improving with the conservative treatment, on IV antibiotics and IV fluids to continue. He is on IV Flagyl and Azactam. Continue Tegretol 400 mg p.o. b.i.d. for seizure disorder, lisinopril 10 mg daily. Lipitor 10 mg daily. Flora Prado MD
[2017-11-16] MEDS: metroNIDAZOLE IV 500 mg/100 ml 500 MG/100 ML BAG IVPB SCH (06:08)
[2017-11-16 07:32] LABS: BASO # 0.02 K/mm3 (0.0-2.0); BASO % 0.4 % (0.0-3.0); EOS # 0.2 (0.0-0.7); EOS % 3.6 % (1.5-5.0); GRAN # 2.74 (1.4-6.5); GRAN % 53.9 % (50.0-68.0); HEMOGLOBIN 15.3 g/dL (14.0-18.0); LYMPH # 1.6 (1.2-3.4); MEAN CELL VOLUME 85.6 fl (80.0-105.0); MEAN CORPUSCULAR HEMOGLOBIN 30.7 pg (25.0-35.0); MEAN CORPUSCULAR HGB CONC 35.8 g/dl (31.0-37.0); MEAN PLATELET VOLUME 10.2 fl (7.0-11.0); MONO # 0.5 (0.1-0.6); MONO % 10.1 % (1.0-6.0); RBC 4.99 10^6/uL (3.5-6.1); RED CELL DISTRIBUTION WIDTH 13.8 % (11.5-14.5); WHITE BLOOD COUNT 5.1 10^3/ul (4.5-11.0)
[2017-11-16 07:34] VITALS: BP 144/81; PULSE 69; RESP 20; TEMP 97.7; O2SAT 97
[2017-11-16 07:35] LABS: BLOOD UREA NITROGEN 9 mg/dL (7-21); CALCIUM 8.9 mg/dL (8.4-10.5); GFR AFRICAN-AMERICAN > 60; GFR NON-AFRICAN AMERICAN > 60
--- NOTE | 2017-11-16 08:21 | CP.PCM.PN ---
Subjective - Date & Time of Evaluation Date of Evaluation: 11/16/17 Time of Evaluation: 08:18 - Subjective Subjective: Surgery Progress Note: Pain continues to improve. Tolerating HHD. Denies fevers, chills, chest pain, SOB, and N/V. Objective - Vital Signs/Intake and Output Vital Signs (last 24 hours): Temp Pulse Resp BP Pulse Ox 97.7 F 69 20 144/81 97 11/16/17 07:34 11/16/17 07:34 11/16/17 07:34 11/16/17 07:34 11/16/17 07:34 Intake and Output: 11/16/17 11/16/17 06:59 18:59 Intake Total 120 Balance 120 - Medications Medications: Current Medications Acetaminophen (Tylenol 325mg Tab) 650 mg PO Q4 PRN PRN Reason: Fever >100.4 F Last Admin: 11/14/17 20:06 Dose: 650 mg Atorvastatin Calcium (Lipitor) 10 mg PO HS [facility] Last Admin: 11/15/17 22:12 Dose: 10 mg Carbamazepine (Tegretol) 400 mg PO BID ZOE PRN Reason: Protocol Last Admin: 11/15/17 17:41 Dose: 400 mg Docusate Sodium (Colace) 100 mg PO BID [facility] Last Admin: 11/15/17 17:41 Dose: 100 mg Metronidazole (Flagyl) 500 mg in 100 mls @ 100 mls/hr IVPB Q8 ZOE PRN Reason: Protocol Last Admin: 11/16/17 06:08 Dose: 100 mls/hr Sodium Chloride (Sodium Chloride 0.9%) 1,000 mls @ 100 mls/hr IV .Q10H [facility] Last Admin: 11/15/17 14:18 Dose: 100 mls/hr Lisinopril (Zestril) 10 mg PO DAILY [facility] Last Admin: 11/15/17 09:07 Dose: 10 mg Morphine Sulfate (Morphine) 2 mg IVP Q4H PRN PRN Reason: Pain, moderate (4-7) Ondansetron HCl (Zofran Inj) 4 mg IVP Q6 PRN PRN Reason: Nausea/Vomiting Pantoprazole Sodium (Protonix Inj) 40 mg IVP DAILY [facility] Last Admin: 11/15/17 09:05 Dose: 40 mg Polyethylene Glycol (Miralax) 17 gm PO BID [facility] Last Admin: 11/15/17 17:41 Dose: 17 gm Primidone (Mysoline) 250 mg PO DAILY [facility] Last Admin: 11/15/17 09:07 Dose: 250 mg Primidone (Mysoline) 375 mg PO HS [facility] Last Admin: 11/15/17 22:21 Dose: 375 mg - Labs Labs: 11/16/17 07:00 11/16/17 07:00 PT 11.8 SECONDS (9.4-12.5) 11/13/17 21:12 INR 1.03 (0.93-1.08) 11/13/17 21:12 - Constitutional Appears: Non-toxic, No Acute Distress - Head Exam Head Exam: ATRAUMATIC, NORMOCEPHALIC - Eye Exam Eye Exam: EOMI, Normal appearance - Respiratory Exam Respiratory Exam: NORMAL BREATHING PATTERN. absent: Respiratory Distress - Cardiovascular Exam Cardiovascular Exam: REGULAR RHYTHM. absent: Bradycardia, Tachycardia, Irregular Rhythm - GI/Abdominal Exam GI & Abdominal Exam: Soft, Tenderness (Mild RLQ TTP (Deep)). absent: Distended , Firm, Guarding, Rebound Assessment and Plan - Assessment and Plan (Free Text) Assessment: 47 y/o male with RLQ pain 2/2 early appy vs constipation Plan: -Continue pain management as needed -Recommend PO antibiotics upon discharge -Dulcolax for constipation -Tolerating HHD -Will discuss further with attending No further surgical interventions indicated at this time. Please reconsult as indicated. Bret Vee, PGY1
[2017-11-16] MEDS: POLYETHYLENE GLYCOL 3350 17 GM/Dose PACKET PO SCH (10:04)
[2017-11-16] MEDS: Sodium Chloride 0.9% 1,000 ML IV SCH (10:13)
--- NOTE | 2017-11-16 11:23 | CP.PCM.PCO ---
Physician Communication Note - Physician Communication Note Physician Communication Note: OK for d/c home w Cipro/Flagyl:? Interval Lap Appy
--- NOTE | 2017-11-16 18:09 | DS ---
HISTORY OF PRESENT ILLNESS: The patient is 47 years old, seen and examined, sitting in chair, seems to be comfortable. Complaining of 2/10 pain in the right lower quadrant area. Eating his lunch. PHYSICAL EXAMINATION: VITAL SIGNS: He is afebrile, pulse 69, respirations 20, blood pressure 144/81. LUNGS: Bilateral good airflow. No rhonchi or crackle. HEART: S1 and S2 audible. ABDOMEN: Soft, obese. Sight right lower quadrant discomfort. NEUROLOGIC: He is awake, alert, oriented, communicative, ambulatory. EXTREMITIES: Bilateral leg, no edema. LABORATORY EXAM: WBC is 5.1, hemoglobin 15, hematocrit 42, platelets 171. Chemistry: Sodium 142, potassium 3.8, chloride 105, CO2 of 27, BUN 9, creatinine 0.9, blood sugar of 90. Urinalysis is unremarkable. ASSESSMENT: 1. Abdominal pain. 2. Constipation. 3. Morbid obesity. 4. History of seizure disorder. 5. History of stimulator placement, probably because of his gastroesophageal reflux disease, although the patient is not clear. He was told that this is to control his seizures. Seems to be to improve gastroesophageal reflux symptoms. PLAN: The patient was seen by Dr. Sinclair. No plan for surgery. He is being sent home on p.o. Cipro and Flagyl. He was told if this pain gets worse, he can always come to emergency room and he will follow up his [facility] [employer] and he will resume his medications including Tegretol, simvastatin, primidone, enalapril and he will follow up with Dr. Sinclair also in the a.m. Carin Smith MD
[2017-11-17] MEDS ORDERED: Pantoprazole 40 mg EC Tab PO SCH (07:30)
== END 2017-11-16 13:06 | disposition home or self-care (01) | DRG 394 ==
LOC: ED 20:15 → ERH 23:50 → 5RSO 11-14 01:27
PROVIDERS: ADMIT Internal Medicine; ATTEND Internal Medicine
DX: K35.80 Unspecified acute appendicitis (principal); Z68.43 Body mass index [BMI] 50.0-59.9, adult; K59.09 Other constipation; R10.31 Right lower quadrant pain; E66.01 Morbid (severe) obesity due to excess calories; G40.909 Epilepsy, unspecified, not intractable, without status epilepticus; K21.9 Gastro-esophageal reflux disease without esophagitis; I10 Essential (primary) hypertension; E78.5 Hyperlipidemia, unspecified; K29.70 Gastritis, unspecified, without bleeding; D72.829 Elevated white blood cell count, unspecified; Z98.2 Presence of cerebrospinal fluid drainage device; Z87.11 Personal history of peptic ulcer disease; Z86.010 Personal history of colon polyps; Z87.891 Personal history of nicotine dependence

== ENCOUNTER 2017-11-17 15:58 | Emergency (ER) | payer MEDICARE, MEDICAID ==
[2017-11-17 16:21] VITALS: RESP 18; TEMP 97.9; BMI 35.5
--- NOTE | 2017-11-17 16:30 | ED PDOC ---
Arrival/HPI - General Chief Complaint: Seizure Time Seen by Provider: 11/17/17 16:15 Historian: Patient - History of Present Illness Narrative History of Present Illness (Text): 11/17/17 16:30 A 47 year old male, whose past medical history includes hypertension and seizure disorder, presents to the emergency department complaining of witnessed seizure. Patient reports having seizures since childhood and takes Mysoline and TEGretol for seizure disorder. Patient denies any tongue bite, self-urinating, or any other complaints at this time. Last time had seizure was 2 days ago. Also patient mentions having been diagnosed with appendicitis and has been taking antibiotics currently. Patient states having an implanted electrical stimulator and pace maker to left-side chest wall. Will be having appendectomy performed in approximately 2 weeks. Patient mentions before seizure occurs, begins to feel generalized weakness as sign of oncoming seizure. PMD: Dr. 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 - HEENT Hx HEENT Disorder: No - Renal Hx Renal Disorder: No - Endocrine/Metabolic Hx Endocrine Disorders: No - Hematological/Oncological Hx Blood Disorders: No - Integumentary Hx Dermatological Disorder: No - Musculoskeletal/Rheumatological Hx Musculoskeletal Disorders: No Hx Falls: No - Gastrointestinal Hx Gastrointestinal Disorders: No - Genitourinary/Gynecological Hx Genitourinary Disorders: No - Psychiatric Hx Emotional Abuse: No Hx Physical Abuse: No Hx Substance Use: No - Surgical History Other/Comment: Brain surgery - Anesthesia Hx Anesthesia: Yes Hx Anesthesia Reactions: No Hx Malignant Hyperthermia: No - Suicidal Assessment Feels Threatened In Home Enviroment: No Family/Social History - Physician Review Nursing Documentation Reviewed: Yes Family/Social History: No Known Family HX Smoking Status: Never Smoked Hx Alcohol Use: No Hx Substance Use: No Hx Substance Use Treatment: No Allergies/Home Meds Allergies/Adverse Reactions: Allergies amoxicillin Allergy (Verified 11/17/17 16:30) ITCHING kiwi Allergy (Verified 11/17/17 16:30) RASH Home Medications: Home Meds Medication Instructions Recorded Confirmed Enalapril Maleate [Vasotec] 10 mg PO DAILY 01/19/17 11/17/17 Primidone [Mysoline] 375 mg PO BID 01/19/17 11/17/17 carBAMazepine [TEGretol-XR] 400 mg PO BID 01/19/17 11/17/17 Simvastatin [Zocor] 5 mg PO HS 04/21/17 11/17/17 Review of Systems - Physician Review All systems were reviewed & negative as marked: Yes - Review of Systems Genitourinary Male: absent: Other (patient did not self-urinate) Neurological: Seizure (no tongue bite) Physical Exam Vital Signs Reviewed: Yes Vital Signs Temp Pulse Resp BP Pulse Ox 11/17/17 18:55 88 18 127/82 100 11/17/17 16:14 97.9 F 84 18 129/81 98 Temperature: Afebrile Blood Pressure: Normal Pulse: Regular Respiratory Rate: Normal Appearance: Positive for: Well-Appearing Pain Distress: None Mental Status: Positive for: Alert and Oriented X 3 Finger Stick Blood Glucose: 95 - Systems Exam Head: Present: Atraumatic, Normocephalic Pupils: Present: PERRL Extroacular Muscles: Present: EOMI Conjunctiva: Present: Normal Mouth: Present: Moist Mucous Membranes Neck: Present: Normal Range of Motion Respiratory/Chest: Present: Clear to Auscultation, Good Air Exchange. No: Respiratory Distress, Accessory Muscle Use Cardiovascular: Present: Regular Rate and Rhythm, Normal S1, S2. No: Murmurs Abdomen: No: Tenderness, Distention, Peritoneal Signs Back: Present: Normal Inspection Upper Extremity: Present: Normal Inspection. No: Cyanosis, Edema Lower Extremity: Present: Normal Inspection. No: Edema Neurological: Present: GCS=15, CN II-XII Intact, Speech Normal Skin: Present: Warm, Dry, Normal Color. No: Rashes Psychiatric: Present: Alert, Oriented x 3, Normal Insight, Normal Concentration Medical Decision Making ED Course and Treatment: 11/17/17 16:35 Impression: 47 year old male with witnessed seizure. Differential Diagnosis included but are not limited to: Plan: -- Labs -- Urinalysis -- Reassess and disposition Prior Visits: Notes and results from previous visits were reviewed. Patient was last seen in the emergency department on 11/13/2017 for abdominal discomfort. Progress Notes: - Lab Interpretations Lab Results: 11/17/17 17:05 11/17/17 17:05 Lab Results 11/17/17 18:01: Urine Color Light yellow, Urine Appearance Clear, Urine pH 6.5, Ur Specific [place] 1.020, Urine Protein Negative, Urine Glucose (UA) Negative, Urine Ketones 15 H, Urine Blood Negative, Urine Nitrate Negative, Urine Bilirubin Negative, Urine Urobilinogen 0.2, Ur Leukocyte Esterase Negative 11/17/17 18:01: Urine Opiates Screen Negative, Urine Methadone Screen Negative, Ur Barbiturates Screen Positive H, Ur Phencyclidine Scrn Negative, Ur Amphetamines Screen Negative, U Benzodiazepines Scrn Negative, U Oth Cocaine Metabols Negative, U Cannabinoids Screen Negative 11/17/17 17:05: Carbamazepine 8 11/17/17 17:05: Sodium 138, Potassium 4.2, Chloride 98, Carbon Dioxide 30, Anion Gap 15, BUN 14, Creatinine 1.0, Est GFR ( Amer) > 60, Est GFR (Non- Af Amer) > 60, Random Glucose 99, Calcium 9.5, Magnesium 2.0, Total Bilirubin 0.3, AST 75 H D, ALT 63 H, Alkaline Phosphatase 73, Total Protein 7.9, Albumin 4.6, Globulin 3.3, Albumin/Globulin Ratio 1.4 11/17/17 17:05: WBC 8.3 D, RBC 5.20, Hgb 16.1, Hct 44.5, MCV 85.6, MCH 31.0, MCHC 36.2, RDW 13.5, Plt Count 183, MPV 10.6, Gran % 80.3 H, Lymph % (Auto) 12.0 L, Russell % (Auto) 6.9 H, Eos % (Auto) 0.6 L, Baso % (Auto) 0.2, Gran # 6.68 H, Lymph # (Auto) 1.0 L, Russell # (Auto) 0.6, Eos # (Auto) 0.1, Baso # (Auto) 0.02 11/17/17 16:10: POC Glucose (mg/dL) 94 I have reviewed the lab results: Yes - Scribe Statement The provider has reviewed the documentation as recorded by the Scribe Asim Stringer Provider Scribe Attestation: All medical record entries made by the Scribe were at my direction and personally dictated by me. I have reviewed the chart and agree that the record accurately reflects my personal performance of the history, physical exam, medical decision making, and the department course for this patient. I have also personally directed, reviewed, and agree with the discharge instructions and disposition. Disposition/Present on Arrival - Present on Arrival Any Indicators Present on Arrival: No History of DVT/PE: No History of Uncontrolled Diabetes: No Urinary Catheter: No History of Decub. Ulcer: No History Surgical Site Infection Following: None - Disposition Have Diagnosis and Disposition been Completed?: Yes Diagnosis: Seizure disorder Disposition: HOME/ ROUTINE Disposition Time: 19:38 Patient Plan: Discharge Condition: FAIR Discharge Instructions (ExitCare): Seizures, Adult (DC) Print Language: PORTUGUESE Additional Instructions: speak with your PMD about poss adjustment of your tegretol dosage.Current level is 8. Referrals: Dianna Guerrero MD [Primary Care Provider] - Follow up with primary Forms: [employer] (Kiswahili)
[2017-11-17 17:22] LABS: BASO # 0.02 K/mm3 (0.0-2.0); BASO % 0.2 % (0.0-3.0); EOS # 0.1 (0.0-0.7); EOS % 0.6 % (1.5-5.0); GRAN # 6.68 (1.4-6.5); GRAN % 80.3 % (50.0-68.0); HEMOGLOBIN 16.1 g/dL (14.0-18.0); MEAN CELL VOLUME 85.6 fl (80.0-105.0); MEAN CORPUSCULAR HGB CONC 36.2 g/dl (31.0-37.0); MEAN PLATELET VOLUME 10.6 fl (7.0-11.0); MONO # 0.6 (0.1-0.6); MONO % 6.9 % (1.0-6.0); RBC 5.2 10^6/uL (3.5-6.1); RED CELL DISTRIBUTION WIDTH 13.5 % (11.5-14.5); WHITE BLOOD COUNT 8.3 10^3/ul (4.5-11.0)
[2017-11-17 17:44] LABS: ALB/GLOB RATIO 1.4 (1.1-1.8); ALBUMIN 4.6 g/dL (3.0-4.8); ALT/SGPT 63 U/L (7-56); AST/SGOT 75 U/L (17-59); BLOOD UREA NITROGEN 14 mg/dL (7-21); CALCIUM 9.5 mg/dL (8.4-10.5); GFR AFRICAN-AMERICAN > 60; GFR NON-AFRICAN AMERICAN > 60
[2017-11-17 18:10] LABS: PH,URINE 6.5 (4.7-8.0); URINE BILIRUBIN NEGATIVE (NEGATIVE); URINE BLOOD NEGATIVE (NEGATIVE); URINE GLUCOSE (UA) NEGATIVE (NEGATIVE); URINE LEUKOCYTE ESTERASE NEGATIVE Leu/uL (NEGATIVE); URINE PROTEIN NEGATIVE mg/dL (<30 mg/dL); URINE UROBILINOGEN 0.2 E.U./dL (<1 E.U./dL)
[2017-11-17 18:11] LABS: URINE APPEARANCE CLEAR (CLEAR); URINE COLOR LIGHT YELLOW (YELLOW)
[2017-11-17 18:52] LABS: BARBITURATES, UR POSITIVE (NEGATIVE); BENZODIAZEPINES, UR NEGATIVE (NEGATIVE); OPIATES, UR NEGATIVE (NEGATIVE); PHENCYCLIDINE, UR NEGATIVE (NEGATIVE)
[2017-11-17 19:27] VITALS: BP 127/82; PULSE 88; O2SAT 100
== END 2017-11-17 18:55 | disposition home or self-care (01) ==
LOC: ED 15:58
DX: G40.909 Epilepsy, unspecified, not intractable, without status epilepticus (principal); I10 Essential (primary) hypertension
CPT/HCPCS: 80053; 80156; 81003; 82948; 83735; 85025; 99285; G0480

== ENCOUNTER 2018-02-02 10:38 | Day surgery (SDC) | payer MEDICARE, MEDICAID ==
[2018-02-02] MEDS ORDERED: Bupivacaine 0.5% Inj(30mL) ONE (14:28)
[2018-02-02] MEDS ORDERED: Propofol 10 mg/ml Inj (20 ML) ONE (14:35)
[2018-02-02] MEDS ORDERED: Glycopyrrolate 0.2 mg/ml (2ml vial) ONE (14:36)
[2018-02-02] MEDS ORDERED: Bupivacaine 0.5% Inj(30mL) IJ ONE (14:48)
[2018-02-02] MEDS ORDERED: Rocuronium 10 mg/ml (5 ml) ONE (15:50)
[2018-02-02] MEDS ORDERED: Neostigmine Methylsulfate 3mg/3ml Syringe IV ONE ×2 (15:50→17:07)
[2018-02-02] MEDS ORDERED: Succinylcholine 200 mg/10 ml Inj IV ONE (15:50)
[2018-02-02] MEDS ORDERED: Labetalol 5 mg/ml Inj 20ML ONE (15:50)
--- NOTE | 2018-02-02 17:29 | PCM.SURG1 ---
Surgeon's Initial Post Op Note - Surgeon's Notes Surgeon: Dr. Hilario Leon Beekeeper Farmer: Lia Russo, PGY-1 Type of Anesthesia: General Endo Anesthesia Administered By: Dr. Laura Pre-Operative Diagnosis: Recurrent appendicitis Operative Findings: Appendix with multiple adhesions to omentum; see op report Post-Operative Diagnosis: Recurrent appendicitis Operation Performed: Laparoscopic appendectomy Specimen/Specimens Removed: appendix Estimated Blood Loss: EBL {In ML}: 25 Blood Products Given: N/A Drains Used: No Drains Post-Op Condition: Good Date of Surgery/Procedure: 02/02/18 Time of Surgery/Procedure: 17:29
[2018-02-02] MEDS ORDERED: Lactated Ringer's 1,000 ML IV SCH (17:30)
[2018-02-02] MEDS ORDERED: Oxycodone/Acetaminophen 5/325 mg Tab PO PRN (17:30)
[2018-02-02] MEDS ORDERED: CARBAMAZEPINE 400 MG PO SCH (18:00)
[2018-02-02] MEDS: Lactated Ringer's 1,000 ML IV SCH (18:51)
[2018-02-02] MEDS ORDERED: SIMVASTATIN 5 MG PO SCH (22:00)
[2018-02-02 23:06] VITALS: RESP 20; BMI 36.1
[2018-02-03] MEDS: Lactated Ringer's 1,000 ML IV SCH ×2 (00:46→09:34)
[2018-02-03 08:15] LABS: BASO # 0.01 K/mm3 (0.0-2.0); BASO % 0.1 % (0.0-3.0); EOS % 0.5 % (1.5-5.0); GRAN # 5.13 (1.4-6.5); GRAN % 70.5 % (50.0-68.0); HEMOGLOBIN 15.2 g/dL (14.0-18.0); LYMPH # 1.5 (1.2-3.4); LYMPH % 20.9 % (22.0-35.0); MEAN CORPUSCULAR HEMOGLOBIN 30.9 pg (25.0-35.0); MEAN CORPUSCULAR HGB CONC 35.9 g/dl (31.0-37.0); MEAN PLATELET VOLUME 10.1 fl (7.0-11.0); MONO # 0.6 (0.1-0.6); RBC 4.92 10^6/uL (3.5-6.1); RED CELL DISTRIBUTION WIDTH 13.5 % (11.5-14.5); WHITE BLOOD COUNT 7.3 10^3/ul (4.5-11.0)
[2018-02-03 08:23] LABS: ALB/GLOB RATIO 1.4 (1.1-1.8); ALT/SGPT 31 U/L (7-56); AST/SGOT 19 U/L (17-59); BLOOD UREA NITROGEN 8 mg/dL (7-21); CALCIUM 8.7 mg/dL (8.4-10.5); GFR AFRICAN-AMERICAN > 60; GFR NON-AFRICAN AMERICAN > 60
[2018-02-03] MEDS ORDERED: Benzocaine/Menthol (Cepacol) Lozenge MT PRN (08:25)
[2018-02-03 08:26] VITALS: BP 135/90; PULSE 96; TEMP 98.5; O2SAT 97
--- NOTE | 2018-02-03 08:56 | CP.PCM.DIS ---
Provider - Provider Date of Admission: February 02, 2018 Attending physician: Hilario Leon MD Primary care physician: Dianna Guerrero MD Consults: none Time Spent in preparation of Discharge (in minutes): 35 Hospital Course - Lab Results Lab Results: Most Recent Lab Values WBC 7.3 10^3/ul (4.5-11.0) D 02/03/18 08:00 RBC 4.92 10^6/uL (3.5-6.1) 02/03/18 08:00 Hgb 15.2 g/dL (14.0-18.0) 02/03/18 08:00 Hct 42.3 % (42.0-52.0) 02/03/18 08:00 MCV 86.0 fl (80.0-105.0) 02/03/18 08:00 MCH 30.9 pg (25.0-35.0) 02/03/18 08:00 MCHC 35.9 g/dl (31.0-37.0) 02/03/18 08:00 RDW 13.5 % (11.5-14.5) 02/03/18 08:00 Plt Count 180 10^3/uL (120.0-450.0) 02/03/18 08:00 MPV 10.1 fl (7.0-11.0) 02/03/18 08:00 Gran % 70.5 % (50.0-68.0) H 02/03/18 08:00 Lymph % (Auto) 20.9 % (22.0-35.0) L 02/03/18 08:00 [place] % (Auto) 8.0 % (1.0-6.0) H 02/03/18 08:00 Eos % (Auto) 0.5 % (1.5-5.0) L 02/03/18 08:00 Baso % (Auto) 0.1 % (0.0-3.0) 02/03/18 08:00 Gran # 5.13 (1.4-6.5) 02/03/18 08:00 Lymph # (Auto) 1.5 (1.2-3.4) 02/03/18 08:00 [place] # (Auto) 0.6 (0.1-0.6) 02/03/18 08:00 Eos # (Auto) 0.0 (0.0-0.7) 02/03/18 08:00 Baso # (Auto) 0.01 K/mm3 (0.0-2.0) 02/03/18 08:00 Sodium 143 mmol/L (132-148) 02/03/18 08:00 Potassium 3.8 mmol/L (3.6-5.0) 02/03/18 08:00 Chloride 103 mmol/L (98-107) 02/03/18 08:00 Carbon Dioxide 29 mmol/L (21-33) 02/03/18 08:00 Anion Gap 14 (10-20) 02/03/18 08:00 BUN 8 mg/dL (7-21) 02/03/18 08:00 Creatinine 0.8 mg/dl (0.8-1.5) 02/03/18 08:00 Est GFR ( Amer) > 60 02/03/18 08:00 Est GFR (Non-Af Amer) > 60 02/03/18 08:00 Random Glucose 101 mg/dL (70-110) 02/03/18 08:00 Calcium 8.7 mg/dL (8.4-10.5) 02/03/18 08:00 Total Bilirubin 0.5 mg/dL (0.2-1.3) 02/03/18 08:00 AST 19 U/L (17-59) 02/03/18 08:00 ALT 31 U/L (7-56) 02/03/18 08:00 Alkaline Phosphatase 79 U/L (38-126) 02/03/18 08:00 Total Protein 6.9 g/dL (5.8-8.3) 02/03/18 08:00 Albumin 4.0 g/dL (3.0-4.8) 02/03/18 08:00 Globulin 2.9 gm/dL 02/03/18 08:00 Albumin/Globulin Ratio 1.4 (1.1-1.8) 02/03/18 08:00 Blood Type A POSITIVE 02/02/18 10:50 Antibody Screen Negative 02/02/18 10:50 BBK History Checked Patient has bt 02/02/18 10:50 - Hospital Course Hospital Course: 47 M w/PMH sig for seizure d/o, obstructive sleep apnea, HTN, HLD and recurrent appendicitis admitted post op laparoscopic appendectomy with general surgery. Pt tolerated procedure well, no complications. Kept for pain control and diet advancement post op. Pt tolerating diet, stable for discharge home with instructions to follow up with Dr. Leon in 7-10 days. Diagnoses Seizure d/o Obstructive sleep apnea on CPAP HTN HLD Recurrent appendicitis s/p Laparoscopic appendectomy Discharge Exam - Head Exam Head Exam: ATRAUMATIC, NORMAL INSPECTION, NORMOCEPHALIC - Eye Exam Eye Exam: EOMI, Normal appearance - ENT Exam ENT Exam: Mucous Membranes Moist, Normal Exam - Neck Exam Neck exam: Full Rom, Normal Inspection - Respiratory Exam Respiratory Exam: NORMAL BREATHING PATTERN, UNREMARKABLE - Cardiovascular Exam Cardiovascular Exam: REGULAR RHYTHM - GI/Abdominal Exam GI & Abdominal Exam: Normal Bowel Sounds, Unremarkable. absent: Distended ( obese), Firm, Guarding, Hernia Additional comments: umbilicus with dressing in place- clean/dry/intact, glue over left lower quadrant incisions-clean/dry, intact, no drainage or erythema noted. - Extremities Exam Extremities exam: full ROM, normal inspection - Neurological Exam Neurological exam: Alert, CN II-XII Intact, Oriented x3 - Psychiatric Exam Psychiatric exam: Normal Affect, Normal Mood - Skin Skin Exam: Dry, Intact, Normal Color, Warm Discharge Plan - Follow Up Plan Condition: GOOD Disposition: HOME/ ROUTINE Instructions: Appendicitis, Adult (DC), Appendectomy, Laparoscopic Surgery (DC) Additional Instructions: Please call Dr. Leon office to make an appointment in 7-10 days. You may resume a normal diet Ok to shower- you have a special glue over your incisions, wash gently with soap and water, do not pick at or remove the glue- it will fall off on it's own No heavy lifting for 4-6 weeks or until cleared by Dr. Leon You may remove the dressing from your umbilicus tomorrow, but you may shower with it today If you have fevers, chills, or notice any thing coming from the incision sites, please return to hospital Referrals: Dianna Guerrero MD [Primary Care Provider] - Hilario Leon MD [Staff Provider] -
--- NOTE | 2018-02-03 22:43 | OP ---
PROCEDURE DATE: 02/02/2018 SURGEON: Hilario Leon MD EDGING MACHINE SETTER: Lia Russo DO, PGY-2. MILITARY PROFESSIONAL: Manjit Laura MD ANESTHESIA: General endotracheal - Marcaine 0.5 - 24 mL. PREOPERATIVE DIAGNOSES: 1. Recurrent appendicitis x3. 2. Seizure disorder. 3. Obstructive sleep apnea. 4. Hypertension. POSTOPERATIVE DIAGNOSES: 1. Recurrent appendicitis x3. 2. Seizure disorder. 3. Obstructive sleep apnea. 4. Hypertension. 5. Extremely dense adhesions and retrocecal appendicitis (extremely long appendix). PROCEDURE: Laparoscopic appendectomy. OPERATIVE INDICATIONS The patient is a 47-year-old male with multiple admissions (3) to hospitals for appendicitis and resolved before surgery was done. He has an extremely severe seizure disorder and has only been controlled in the last 2 months with medication including Mysoline and Tegretol b.i.d. His pulmonary condition is marked by an extremely severe obstructive sleep apnea with over 300 episodes of apnea during the tested 24-hour period. He has been advised that this is the optimal time for removal of his appendix electively and he is brought to the operating room now after explaining the risks, benefits and alternatives with their anticipated outcomes. OPERATIVE NOTE: The patient is brought to the operating room from the same day holding area. He is identified by his wrist band, undergoes time-out procedure and was placed on the table in a supine manner. Following the induction of general anesthesia and the insertion of an endotracheal tube, the abdomen is prepped with Hibiclens and aseptically draped. The umbilicus was elevated on towel clips, infiltrated above the umbilicus with the bupivacaine, incision made and a Veress needle was inserted into the peritoneal cavity and the abdomen insufflated with carbon dioxide gas to 14 mmHg. The needle was removed and a blunt trocar inserted with laparoscope observation and the peritoneum was entered between clamps and the abdomen completely explored. Two 5 mm trocars were placed in the left side of the abdomen and the patient is rotated to a Trendelenburg position with steep left lateral rotation. The cecum is identified and elevated into the visual field and with some difficulty because of dense adhesions and an extremely long retrocecal appendix. Adhesions were carefully lysed using the LigaSure device. The appendix is transected at the cecum with the Endopath 45 blue stapler and the appendix grasped with prestige clamp and further adhesions completely freed and the appendix placed in an EndoCatch This patient's appendix was retrocecal, markedly inflamed and extensively long more than normally seen. It is brought out through the midline trocar and submitted to Pathology in formalin. The wound on the meso of the colon and the appendix is lavaged with several liters of normal saline solution until the return is completely clear and using the exit closure device, the midline incision was closed with 2-0 PDS interrupted suture. The skin is closed with 4-0 Biosyn and Dermabond. The patient was awakened, extubated and transported to the recovery room in satisfactory condition. Sponge, instrument, suture count were verified as correct at the end of the procedure. Estimated blood loss during the procedure was less than 30 mL of blood. This dictation will be electronically signed without being read. The surgical assistants were present throughout the procedure from beginning to end and were essential to the procedure for dissection and removal of this difficult appendix. Hilario Leon MD
== END 2018-02-03 16:19 | disposition home or self-care (01) ==
LOC: SDS 10:38 → 5RNO 18:28 → SDS 02-03 16:19
PROVIDERS: ATTEND Surgery
DX: K36 Other appendicitis (principal); G40.909 Epilepsy, unspecified, not intractable, without status epilepticus; G47.33 Obstructive sleep apnea (adult) (pediatric); I10 Essential (primary) hypertension; E78.5 Hyperlipidemia, unspecified
CPT/HCPCS: 36415 ×2; 44970; 80053; 85025; 86850; 86900; 88304; J0131; J0330; J2001; J2405; J2704; J2710; J2765; J3010; J7120 ×3

== ENCOUNTER 2018-04-13 10:47 | Emergency (ER) | payer MEDICARE, MEDICAID ==
[2018-04-13 10:47] VITALS: BMI 36.1
[2018-04-13 11:43] VITALS: RESP 18
[2018-04-13 12:16] LABS: BASO # 0.02 K/mm3 (0.0-2.0); BASO % 0.4 % (0.0-3.0); EOS # 0.2 (0.0-0.7); EOS % 3.7 % (1.5-5.0); GRAN # 2.44 (1.4-6.5); GRAN % 49.4 % (50.0-68.0); HEMOGLOBIN 15.1 g/dL (14.0-18.0); LYMPH # 1.6 (1.2-3.4); LYMPH % 32.9 % (22.0-35.0); MEAN CELL VOLUME 85.5 fl (80.0-105.0); MEAN CORPUSCULAR HEMOGLOBIN 30.8 pg (25.0-35.0); MEAN PLATELET VOLUME 10.4 fl (7.0-11.0); MONO # 0.7 (0.1-0.6); MONO % 13.6 % (1.0-6.0); RBC 4.9 10^6/uL (3.5-6.1); RED CELL DISTRIBUTION WIDTH 13.6 % (11.5-14.5); WHITE BLOOD COUNT 4.9 10^3/ul (4.5-11.0)
--- NOTE | 2018-04-13 12:18 | ED PDOC ---
Arrival/HPI - General Chief Complaint: Seizure Time Seen by Provider: 04/13/18 12:06 Historian: Patient - History of Present Illness Narrative History of Present Illness (Text): 04/13/18 12:18 A 47 year old male, whose past medical history includes seizure disorder, HTN, and HLD, presents to the emergency department complaining of seizure episode this morning. Patient reports last seizure was over a year ago. States he was in his kitchen when he suddenly seizure episodes. Mentions prior to seizure did not experience any headache, however experienced it post-episode. Patient denies any other complaints at this time. Also, patient mentions he is compliant with his seizure medications, as well as his HTN and HLD medications. PMD: Dr. Ambrose Past Medical History - Provider Review Nursing Documentation Reviewed: Yes - Infectious Disease Hx of Infectious Diseases: None - Cardiac Hx Cardiac Disorders: Yes Hx Hypertension: Yes - Pulmonary Hx Pneumonia: Yes Hx Sleep Apnea: Yes (obstructive) - Neurological Hx Neurological Disorder: Yes Hx Seizures: Yes (epilepsy) Other/Comment: VNS - HEENT Hx HEENT Disorder: No - Renal Hx Renal Disorder: No - Endocrine/Metabolic Hx Endocrine Disorders: No - Hematological/Oncological Hx Blood Disorders: No - Integumentary Hx Dermatological Disorder: No - Musculoskeletal/Rheumatological Hx Falls: No - Gastrointestinal Hx Gastrointestinal Disorders: Yes Hx Gastroesophageal Reflux: Yes Hx Gastrointestinal Ulcer: Yes Other/Comment: colonic polyps - Genitourinary/Gynecological Hx Genitourinary Disorders: No Hx Urinary Tract Infection: Yes Other/Comment: cystitis - Psychiatric Hx Psychophysiologic Disorder: No Hx Substance Use: No - Surgical History Hx Appendectomy: Yes Other/Comment: lap appendectomy, adhesions to omentum - Anesthesia Hx Anesthesia Reactions: No Hx Malignant Hyperthermia: No - Suicidal Assessment Feels Threatened In Home Enviroment: No Family/Social History - Physician Review Nursing Documentation Reviewed: Yes Family/Social History: No Known Family HX Smoking Status: Never Smoked Hx Alcohol Use: No Hx Substance Use: No Hx Substance Use Treatment: No Allergies/Home Meds Allergies/Adverse Reactions: Allergies amoxicillin Allergy (Severe, Verified 04/13/18 11:43) ITCHING kiwi Allergy (Severe, Verified 04/13/18 11:43) RASH/SWELLING Home Medications: Home Meds Medication Instructions Recorded Confirmed Enalapril Maleate [Vasotec] 10 mg PO DAILY 01/19/17 04/13/18 carBAMazepine [TEGretol-XR] 400 mg PO BID 01/19/17 04/13/18 Simvastatin [Zocor] 5 mg PO HS 04/21/17 04/13/18 Primidone [Mysoline] 250 mg PO QAM 01/28/18 04/13/18 Review of Systems - Physician Review All systems were reviewed & negative as marked: Yes - Review of Systems Constitutional: Other (weakness) Neurological: Headache, Seizure Physical Exam - Physical Exam Narrative Physical Exam (Text): Gen: VS reviewed, alert, well developed, well nourished, nontoxic, mild distress. ENT: normal pharynx Eye: EOMI, PERRL Neck: no JVD, supple, no adenopathy CV: regular rate, regular rhythm, no rubs, no murmur, no gallops, S1, S2, pulses equal and strong Pulm: no distress, clear to auscultation, no wheeze, no rhonchi, breath sounds equal, no rales Abd: soft, nontender, no guarding, no rebound, no rigidity, normal bowel sounds Ext: no edema Skin: good color, no rash, no cyanosis Psych: responds appropriately to questions, normal affect Neuro: oriented x 3, CN2-12 intact grossly, motor intact, sensation intact Vital Signs Reviewed: Yes Vital Signs Temp Pulse Resp BP Pulse Ox 04/13/18 14:30 74 18 129/81 98 04/13/18 11:41 97.6 F 81 18 132/86 98 Temperature: Afebrile Blood Pressure: Normal Pulse: Regular Respiratory Rate: Normal Appearance: Positive for: Well-Appearing, Non-Toxic, Comfortable Pain Distress: None Mental Status: Positive for: Alert and Oriented X 3 Medical Decision Making ED Course and Treatment: 04/13/18 12:20 Impression: 47 year old male with seizure episode. No acute findings on physical exam. Plan: -- Head CT -- EKG -- Chest X-ray -- Labs -- Reassess and disposition Progress Notes: 04/13/2018 13:[address] IMPRESSION: No intracranial hemorrhage. 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 Dictator: Robb Funez MD 04/13/2018 13:34 Chest X-ray IMPRESSION: No active disease. Dictator: Robb Funez MD 04/13/18 17:15 patient feels well and is back to him baseline mental status. late note, i have discussed the case with dr. galvin, neurology educational assistant, recommends increasing dose of tegretol to 600mg BID. patient remained stable throughout ED course. xrays of low back and sacrum done to rule out overt injury. - Lab Interpretations Lab Results: 04/13/18 11:50 04/13/18 11:50 Lab Results 04/13/18 11:50: WBC 4.9 D, RBC 4.90, Hgb 15.1, Hct 41.9 L, MCV 85.5, MCH 30.8, MCHC 36.0, RDW 13.6, Plt Count 165, MPV 10.4, Gran % 49.4 L, Lymph % (Auto) 32.9 , [place] % (Auto) 13.6 H, Eos % (Auto) 3.7, Baso % (Auto) 0.4, Gran # 2.44, Lymph # (Auto) 1.6, [place] # (Auto) 0.7 H, Eos # (Auto) 0.2, Baso # (Auto) 0.02 04/13/18 11:50: TSH 3rd Generation 1.73 04/13/18 11:50: Sodium 142, Potassium 3.9, Chloride 103, Carbon Dioxide 29, Anion Gap 14, BUN 10, Creatinine 0.7 L, Est GFR ( Amer) > 60, Est GFR ( Non-Af Amer) > 60, Random Glucose 104, Calcium 8.7, Magnesium 2.1, Total Bilirubin 0.3, AST 25, ALT 25, Alkaline Phosphatase 88, Total Protein 7.1, Albumin 4.3, Globulin 2.8, Albumin/Globulin Ratio 1.5 I have reviewed the lab results: Yes - RAD Interpretation Radiology Orders: 04/13/18 12:07 HEAD W/O CONTRAST [CT] Stat CHEST PORTABLE [RAD] Stat 04/13/18 16:02 SACRUM &/or COCCYX (MIN 2VW) [RAD] Stat 04/13/18 16:25 LS SPINE WITH OBL > 18 YRS OLD [RAD] Stat - EKG Interpretation EKG Interpretation (Text): 04/13/18 14:29 1138: nsr at 82 bpm, nml qrs, nml axis, no acute sttw abn Interpreted by ED Physician: Yes - Medication Orders Current Medication Orders: Discontinued Medications Acetaminophen (Tylenol 325mg Tab) 975 mg PO STAT STA Stop: 04/13/18 16:26 Carbamazepine (Tegretol) 600 mg PO STAT STA PRN Reason: Protocol Stop: 04/13/18 14:15 Last Admin: 04/13/18 14:50 Dose: 600 mg - Scribe Statement The provider has reviewed the documentation as recorded by the Issac Stringer Provider Scribe Provider Scribescobar Attestation: All medical record entries made by the Issac were at my direction and personally dictated by me. I have reviewed the chart and agree that the record accurately reflects my personal performance of the history, physical exam, medical decision making, and the department course for this patient. I have also personally directed, reviewed, and agree with the discharge instructions and disposition. Disposition/Present on Arrival - Present on Arrival Any Indicators Present on Arrival: No History of DVT/PE: No History of Uncontrolled Diabetes: No Urinary Catheter: No History of Decub. Ulcer: No History Surgical Site Infection Following: None - Disposition Have Diagnosis and Disposition been Completed?: Yes Diagnosis: Seizure disorder, Low back pain, Contusion Disposition: HOME/ ROUTINE Disposition Time: 17:17 Patient Plan: Discharge Patient Problems: Current Active Problems Problem Status Onset Contusion Acute Low back pain Acute Seizure disorder Acute Condition: STABLE Discharge Instructions (ExitCare): Low Back Pain (DC), Seizures, Adult (DC), Contusion (DC) Print Language: [place] Additional Instructions: LIEN DANG, thank you for letting us take care of you today. Your provider was Dr. Kenroy Padilla and you were treated for breakthrough seizure and hip contusion.. The emergency medical care you received today was directed at your acute symptoms. If you were prescribed any medication, please fill it and take as directed. It may take several days for your symptoms to resolve. Return to the Emergency Department if your symptoms worsen, do not improve, or if you have any other problems. Please contact your doctor or call one of the physicians/clinics you have been referred to that are listed on the Patient Visit Information form that is included in your discharge packet. Bring any paperwork you were given at discharge with you along with any medications you are taking to your follow up visit. Our treatment cannot replace ongoing medical care by a primary care provider outside of the emergency department. Thank you for allowing the [facility] team to be part of your care today. If you had an X-Ray or CT scan: A Radiologist will review the ED reading if any change in treatment is needed we will contact you. If you had a blood, urine, or wound culture: It will take several days for the results, if any change in treatment is needed we will contact you. If you had an STI test: It will take 48 hours for the results. Please call after 1 week if you have not heard back. Prescriptions: carBAMazepine [TEGretol] 600 mg PO BID 30 Days #180 tab Referrals: Dianna Guerrero MD [Primary Care Provider] - Follow up with primary [facility] [Outside] - Follow up with primary Jim Boateng MD [Staff Provider] - Follow up with primary Doug Galvin MD [Staff Provider] - Follow up with primary Forms: [employer] (Gabonese), WORK NOTE
[2018-04-13 12:29] LABS: ALB/GLOB RATIO 1.5 (1.1-1.8); ALBUMIN 4.3 g/dL (3.0-4.8); ALT/SGPT 25 U/L (7-56); AST/SGOT 25 U/L (17-59); BLOOD UREA NITROGEN 10 mg/dL (7-21); CALCIUM 8.7 mg/dL (8.4-10.5); GFR NON-AFRICAN AMERICAN > 60
--- NOTE | 2018-04-13 13:06 | CT ---
Date of service: 04/13/2018 PROCEDURE: CT HEAD WITHOUT CONTRAST. HISTORY: recurrent seizure, trauma COMPARISON: 01/19/2017 TECHNIQUE: Axial computed tomography images were obtained through the head/brain without intravenous contrast. Radiation dose: Total exam DLP = 808.88 mGy-cm. This CT exam was performed using one or more of the following dose reduction techniques: Automated exposure control, adjustment of the mA and/or kV according to patient size, and/or use of iterative reconstruction technique. FINDINGS: HEMORRHAGE: No intracranial hemorrhage. BRAIN: No mass effect or edema. Right temporal encephalomalacia status post right temporal craniotomy. No change from prior. No intracranial mass. VENTRICLES: Unremarkable. No hydrocephalus. CALVARIUM: Right temporal craniotomy. No fracture. PARANASAL SINUSES: Unremarkable as visualized. No significant inflammatory changes. MASTOID AIR CELLS: Unremarkable as visualized. No inflammatory changes. OTHER FINDINGS: None. IMPRESSION: No intracranial hemorrhage. 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
--- NOTE | 2018-04-13 13:36 | RAD ---
Date of service: 04/13/2018 HISTORY: chest pain COMPARISON: No prior. FINDINGS: LUNGS: No active pulmonary disease. PLEURA: No significant pleural effusion identified, no pneumothorax apparent. CARDIOVASCULAR: Normal heart size. Permanent pacemaker. OSSEOUS STRUCTURES: No significant abnormalities. VISUALIZED UPPER ABDOMEN: Normal. OTHER FINDINGS: None. IMPRESSION: No active disease.
--- NOTE | 2018-04-13 17:20 | RAD ---
Date of service: 04/13/2018 PROCEDURE: Radiographs of the Lumbar Spine. HISTORY: fall, pain COMPARISON: No prior. FINDINGS: BONES: Normal alignment. No listhesis. No fracture. DISC SPACES: Unremarkable. OTHER FINDINGS: None. IMPRESSION: Unremarkable radiographs of the lumbar spine.
--- NOTE | 2018-04-13 17:21 | RAD ---
Date of service: 04/13/2018 PROCEDURE: Radiographs of the Sacrum and Coccyx HISTORY: fall, injury COMPARISON: None available. TECHNIQUE: Frontal and lateral views of the sacrum and coccyx FINDINGS: BONES: Sacrum and coccyx unremarkable. No fracture or focal lesion. SACROILIAC JOINTS: Unremarkable. OTHER FINDINGS: None. IMPRESSION: Unremarkable radiographs of the sacrum and coccyx.
[2018-04-13 19:08] VITALS: BP 126/78; PULSE 80; TEMP 98.1; O2SAT 96
--- NOTE | 2018-04-13 21:31 | CARD ---
APPROVED REPORT Date of service: 04/13/2018 EKG Measurement Heart [id number] <Conclusion> Normal sinus rhythm Inferior infarct, age undetermined Abnormal ECG
== END 2018-04-13 19:15 | disposition home or self-care (01) ==
LOC: ED 10:47
DX: G40.909 Epilepsy, unspecified, not intractable, without status epilepticus (principal); M54.5 Low back pain; T14.8XXA Other injury of unspecified body region, initial encounter; X58.XXXA Exposure to other specified factors, initial encounter; E78.5 Hyperlipidemia, unspecified; I10 Essential (primary) hypertension